=== PATIENT | female | born 1960 | race Caucasian/White ===

== ENCOUNTER 2016-09-16 07:31 | Day surgery (SDC) | payer OTHER ==
[2016-09-16] MEDS ORDERED: ONDANSETRON 4 MG/2 ML VIAL ONE (08:17)
[2016-09-16] MEDS ORDERED: LACTATED RINGERS 1,000 ML IV ONE (09:30)
[2016-09-16] MEDS ORDERED: fentaNYL 250 MCG/5 ML VIAL IVP ONE (09:54)
[2016-09-16] MEDS ORDERED: MIDAZOLAM 2 MG/2 ML VIAL IVP ONE (09:54)
== END 2016-09-16 07:32 | disposition home or self-care (01) ==
PROC: 0DJD8ZZ Inspection of Lower Intestinal Tract, Via Natural or Artificial Opening Endoscopic (ICD-10-PCS; principal; 2016-09-16 08:25)
DX: Z12.11 Encounter for screening for malignant neoplasm of colon (principal); K64.8 Other hemorrhoids; E11.9 Type 2 diabetes mellitus without complications; Z79.4 Long term (current) use of insulin; E03.9 Hypothyroidism, unspecified
CPT/HCPCS: 45378; J3010; J7120

== ENCOUNTER 2018-04-07 09:15 | Outpatient (CLI) | payer OTHER ==
[2018-04-07 14:05] LABS: ALBUMIN 4.1 g/dL (3.2-5.5); ALBUMIN/GLOBULIN RATIO 1.4 (1.0-2.2); BILIRUBIN,TOTAL 1.3 mg/dL (0.2-1.0); CALCIUM 9.2 mg/dL (8.5-10.3); CREATININE 0.5 mg/dL (0.4-1.0); TOTAL PROTEIN 7.1 g/dL (6.7-8.2)
[2018-04-07 15:09] LABS: HB2 TOTAL 15.8 g/dL; HEMOGLOBIN A1C 0.97 g/dL; HEMOGLOBIN A1C % 7.8 % (4.6-6.2)
== END 2018-04-07 09:16 | disposition home or self-care (01) ==
LOC: LAB.WCP 09:15
PROVIDERS: ATTEND Family Medicine
DX: E10.9 Type 1 diabetes mellitus without complications (principal)
CPT/HCPCS: 36415; 80053; 82043; 83036

== ENCOUNTER 2019-03-19 08:29 | Outpatient (CLI) | payer OTHER ==
--- NOTE | 2019-03-19 11:30 | Mammography Report ---
Reason: SCREENING MAMMO Procedure Date: 03/19/2019 Accession Number: [id number] / [id number] Procedure: RUFUS - Screening Mammo w/Collin CPT Code: FULL RESULT: EXAM: Screening Mammo w/Collin DATE: 03/19/2019 8:40 AM CLINICAL HISTORY: Screening encounter. History of early menses. TECHNIQUE: (B) - Bilateral CC and MLO views were obtained. Left laterally exaggerated CC views obtained. COMPARISON: 08/05/2016 through 12/21/2012. PARENCHYMAL PATTERN: (A) - The breast(s) demonstrate(s) scattered fibroglandular densities. FINDINGS: A typically benign right breast upper outer quadrant intramammary lymph node is redemonstrated. There are no suspicious masses, calcifications, or areas of distortion. IMPRESSION: Benign findings. BI-RADS category 2. RECOMMENDATION: (ANNUAL) - Recommend routine annual screening mammography. BI-RADS CATEGORY: (2) - Benign Findings. STANDARD QUALIFYING STATEMENTS: 1. This examination was not reviewed with the aid of Computer-Aided Detection (CAD). 2. A negative or benign imaging report should not preclude biopsy if clinically suspicious findings are present. 3. Dense breasts may obscure an underlying neoplasm. 4. This examination was reviewed with the aid of 3D breast imaging (tomosynthesis).
== END 2019-03-19 08:30 | disposition home or self-care (01) ==
LOC: DI 08:29
DX: Z12.31 Encounter for screening mammogram for malignant neoplasm of breast (principal)
CPT/HCPCS: 77063; 77067

== ENCOUNTER 2020-04-21 09:42 | Outpatient (CLI) | payer OTHER ==
[2020-04-21 12:21] LABS: CREATININE,URINE 46.3 mg/dL; MICROALBUM/CREATININE RATIO,UR 4.3 ug/mg (<30.0); MICROALBUMIN,URINE 0.2 mg/dL (0-300.0)
[2020-04-21 12:32] LABS: ALBUMIN/GLOBULIN RATIO 1.6 (1.0-2.2); ALKALINE PHOSPHATASE 52 IU/L (42-121); ALT ALANINE AMINOTRANSFERASE 29 IU/L (10-60); AST ASPARTATE AMINOTRANSFERASE 31 IU/L (10-42); BILIRUBIN,TOTAL 0.9 mg/dL (0.2-1.0); BUN - BLOOD UREA NITROGEN 24 mg/dL (6-20); CALCIUM 8.8 mg/dL (8.5-10.3); CARBON DIOXIDE - CO2 25 mmol/L (21-32); CHLORIDE 106 mmol/L (101-111); CHOL/HDL RATIO 4.1 (<4.4); CHOLESTEROL 159 mg/dL; CREATININE 0.6 mg/dL (0.4-1.0); GLUCOSE 238 mg/dL (70-100); HDL CHOLESTEROL 39 mg/dL; SODIUM 138 mmol/L (135-145); TOTAL PROTEIN 6.5 g/dL (6.7-8.2)
[2020-04-21 12:49] LABS: LDL CHOLESTEROL,CALCULATED 98 mg/dL; LDL/HDL RATIO 2.5 (<4.4); VLDL CHOLESTEROL 22 mg/dL
== END 2020-04-21 23:59 | disposition home or self-care (01) ==
LOC: LAB.WCP 09:42
PROVIDERS: ATTEND Family Medicine
DX: E10.9 Type 1 diabetes mellitus without complications (principal)
CPT/HCPCS: 36415; 80053; 80061; 82043; 82570; 83036; 83721; 84443

== ENCOUNTER 2020-07-12 14:55 | Outpatient (CLI) | payer OTHER ==
--- NOTE | 2020-07-13 16:44 | Mammography Report ---
BILATERAL DIGITAL SCREENING MAMMOGRAM 3D/2D: 07/12/2020 CLINICAL: Routine screening. Comparison is made to exams dated: 03/19/2019 mammogram and 08/05/2016 mammogram - [facility]. There are scattered fibroglandular elements in both breasts. No significant masses, calcifications, or other findings are seen in either breast. There has been no significant interval change. IMPRESSION: NEGATIVE There is no mammographic evidence of malignancy. A 1 year screening mammogram is recommended. This exam was interpreted at Station ID: [id number]. NOTE: For mammograms, a report in lay terms will be sent to the patient. Approximately 15% of breast malignancies will not be visualized mammographically. In the management of a palpable breast mass, a negative mammogram must not discourage biopsy of a clinically suspicious lesion. Electronically Signed By: Kobe somers/aravindrad:07/12/2020 16:14:32 ACR BI-RADS Category 1: Negative 3341F PARENCHYMAL PATTERN: (A) - The breast(s) demonstrate(s) scattered fibroglandular densities. BI-RADS CATEGORY: (1) - 1 RECOMMENDATION: (ANNUAL) - Recommend routine annual screening mammography. [id number] 1 year screening LATERALITY: (B)
== END 2020-07-12 14:56 | disposition home or self-care (01) ==
LOC: DI 14:55
DX: Z12.31 Encounter for screening mammogram for malignant neoplasm of breast (principal)
CPT/HCPCS: 77063; 77067

== ENCOUNTER 2021-05-25 08:00 | Outpatient (CLI) | payer OTHER ==
[2021-05-25 17:43] LABS: BASOPHILS # (AUTO) 0.1 10^3/uL (0.0-0.1); BASOPHILS % (AUTO) 0.6 %; EOSINOPHILS # (AUTO) 0.2 10^3/uL (0.0-0.7); HCT - HEMATOCRIT 43.3 % (37.0-47.0); HGB - HEMOGLOBIN 13.5 g/dL (12.0-16.0); LYMPHOCYTES # (AUTO) 2.5 10^3/uL (1.5-3.5); LYMPHOCYTES % (AUTO) 28.5 %; MEAN CORPUSCULAR HEMOGLOBIN 28.5 pg (27.0-31.0); MEAN CORPUSCULAR HGB CONC 31.2 g/dL (32.0-36.0); MEAN CORPUSCULAR VOLUME 91.5 fL (81.0-99.0); MEAN PLATELET VOLUME 11.2 fL (7.9-10.8); MONOCYTES # (AUTO) 0.5 10^3/uL (0.0-1.0); MONOCYTES % (AUTO) 5.9 %; NEUTROPHILS # (AUTO) 5.4 10^3/uL (1.5-6.6); NEUTROPHILS % (AUTO) 62.5 %; PLT - PLATELET COUNT 280 10^3/uL (130-450); RED BLOOD COUNT 4.73 10^6/uL (4.20-5.40); RED CELL DISTRIBUTION WIDTH 14.1 % (12.0-15.0); WHITE BLOOD COUNT 8.6 x10^3/uL (4.8-10.8)
[2021-05-25 18:14] LABS: CREATININE,URINE 70.3 mg/dL; MICROALBUM/CREATININE RATIO,UR 14.2 ug/mg (<30.0)
[2021-05-25 18:23] LABS: ALBUMIN 3.9 g/dL (3.2-5.5); ALBUMIN/GLOBULIN RATIO 1.4 (1.0-2.2); ALKALINE PHOSPHATASE 62 IU/L (42-121); ALT ALANINE AMINOTRANSFERASE 42 IU/L (10-60); AST ASPARTATE AMINOTRANSFERASE 40 IU/L (10-42); BILIRUBIN,TOTAL 1.2 mg/dL (0.2-1.0); BUN - BLOOD UREA NITROGEN 25 mg/dL (6-20); CALCIUM 8.9 mg/dL (8.5-10.3); CARBON DIOXIDE - CO2 27 mmol/L (21-32); CHLORIDE 105 mmol/L (101-111); CHOL/HDL RATIO 2.7 (<4.4); CHOLESTEROL 160 mg/dL; CREATININE 0.5 mg/dL (0.4-1.0); GFR - MDRD 125 (>89); GLUCOSE 151 mg/dL (70-100); HDL CHOLESTEROL 59 mg/dL; LDL CHOLESTEROL,CALCULATED 83 mg/dL; LDL/HDL RATIO 1.4 (<4.4); POTASSIUM 4.1 mmol/L (3.5-5.0); SODIUM 139 mmol/L (135-145); TOTAL PROTEIN 6.6 g/dL (6.7-8.2); TRIGLYCERIDES 92 mg/dL; VLDL CHOLESTEROL 18 mg/dL
[2021-05-25 18:36] LABS: THYROID STIMULATING HORMONE 0.53 uIU/mL (0.34-5.60)
[2021-05-25 21:26] LABS: ESTIMATED AVERAGE GLUCOSE 148 mg/dL (70-100); HEMOGLOBIN A1c% 6.8 % (4.27-6.07)
== END 2021-05-25 23:59 | disposition home or self-care (01) ==
LOC: LAB.WCP 08:00
PROVIDERS: ATTEND Family Medicine
DX: E10.9 Type 1 diabetes mellitus without complications (principal)
CPT/HCPCS: 36415; 80053; 80061; 82043; 82570; 83036; 83721; 84443; 85025

== ENCOUNTER 2021-08-08 10:16 | Outpatient (CLI) | payer OTHER ==
--- NOTE | 2021-08-09 13:38 | Mammography Report ---
BILATERAL DIGITAL SCREENING MAMMOGRAM 3D/2D: 08/08/2021 CLINICAL: Routine screening. Comparison is made to exams dated: 07/12/2020 mammogram, 03/19/2019 mammogram, 08/05/2016 mammogram, 06/20/2015 mammogram, 05/18/2014 mammogram, and 12/21/2012 mammogram - [facility]. T here are scattered fibroglandular elements in both breasts. No significant masses, calcifications, or other findings are seen in either breast. There has been no significant interval change. IMPRESSION: NEGATIVE There is no mammographic evidence of malignancy. A 1 year screening mammogram is recommended. This exam was interpreted at Station ID: [id number]. NOTE: For mammograms, a report in lay terms will be sent to the patient. Approximately 15% of breast malignancies will not be visualized mammographically. In the management of a palpable breast mass, a negative mammogram must not discourage biopsy of a clinically suspicious lesion. Electronically Signed By: Jase Esteban M.D., jr/mikey:08/08/2021 15:42:26 ACR BI-RADS Category 1: Negative 3341F PARENCHYMAL PATTERN: (A) - The breast(s) demonstrate(s) scattered fibroglandular densities. BI-RADS CATEGORY: (1) - 1 RECOMMENDATION: (ANNUAL) - Recommend routine annual screening mammography. [id number] 1 year screening LATERALITY: (B)
== END 2021-08-08 10:17 | disposition home or self-care (01) ==
LOC: DI.N 10:16 → DI 10:17
DX: Z12.31 Encounter for screening mammogram for malignant neoplasm of breast (principal)

== ENCOUNTER 2021-08-29 15:15 | Outpatient (CLI) | payer OTHER ==
[2021-08-29 18:49] LABS: BILIRUBIN,URINE NEGATIVE (NEGATIVE); GLUCOSE, URINE (UA) NEGATIVE (NEGATIVE); KETONES,URINE (UA) NEGATIVE (NEGATIVE); LEUKOCYTE ESTERASE, URINE NEGATIVE (NEGATIVE); NITRITE,URINE NEGATIVE (NEGATIVE); OCCULT BLOOD,URINE LARGE (NEGATIVE); PH,URINE 5.5 PH (5.0-7.5); PROTEIN,URINE 100 mg/dL (NEGATIVE); UROBILINOGEN,URINE 0.2 (NORMAL) E.U./dL (NORMAL)
[2021-08-29 18:52] LABS: CLARITY,URINE HAZY (CLEAR)
[2021-08-29 19:16] LABS: BACTERIA,URINE Rare /HPF (None Seen); RBC,URINE TNTC /HPF (0-5); SQUAMOUS EPITHELIAL CELL,UR RARE Squamous (<= Few); WBC,URINE 0-3 /HPF (0-5)
== END 2021-08-29 23:59 | disposition home or self-care (01) ==
LOC: LAB.WCP 15:15
PROVIDERS: ATTEND Family Medicine
DX: R10.2 Pelvic and perineal pain (principal)
CPT/HCPCS: 81001; 87086

== ENCOUNTER 2021-09-06 11:16 | Outpatient (CLI) | payer OTHER ==
[2021-09-06 12:14] LABS: CREATININE 0.6 mg/dL (0.4-1.0); POTASSIUM 3.7 mmol/L (3.5-5.0)
[2021-09-06] MEDS ORDERED: iohexoL-300 100 ML VIAL ONE (12:41)
[2021-09-06] MEDS ORDERED: iohexoL-300 100 ML VIAL IVP ONE (12:56)
--- NOTE | 2021-09-06 13:53 | CT Report ---
PROCEDURE: ABDOMEN/PELVIS W/WO INDICATIONS: HEMATURIA CONTRAST: IV CONTRAST: Isovue 300 ml: 140 PO CONTRAST: *NO PO CONTRAST TECHNIQUE: Noncontrast 5 mm thick sections acquired from the diaphragms to the symphysis. 5 mm coronal and sagi ttal reformats were then performed. After the administration of oral and intravenous contrast, 5 mm thick sections acquired from the diaphragms to the symphysis. 5 mm thick coronal and sagittal reform ats were acquired. For radiation dose reduction, the following was used: automated exposure control , adjustment of mA and/or kV according to patient size. COMPARISON: None. FINDINGS: Image quality: Excellent. Lung bases: Lung bases are clear. Heart size is normal. Urinary system: Both kidneys are normal in size, without hydronephrosis. There is a right renal pelv ic calculus measuring 9 mm. There are 2 adjacent calculi within the inferior pole left kidney measuri ng roughly 4-5 mm. There are 3 adjacent calculi within the left renal pelvis measuring 9 mm, 13 mm, a nd 7 mm. No perinephric fat stranding. There is normal bilateral renal enhancement. Renal calyces a ppear normal in morphology when filled with contrast. Opacified portions of both ureters demonstrate normal caliber. Bladder wall thickness is normal. No calcified bladder stones. Other solid organs: Liver and spleen are normal in size and enhancement. Gallbladder is mildly diste nded Biliary system is non dilated. Pancreas enhances normally. No adrenal nodules. Peritoneum and bowel: Bowel loops demonstrate normal wall thickness and caliber. No free fluid or a ir. Nodes and vessels: No retroperitoneal or mesenteric adenopathy by size criteria. Aorta and inferior vena cava are normal in size. Abdominal wall: A small fat-containing umbilical hernia is present. Pelvis: No pathologic free pelvic fluid. No inguinal hernias or adenopathy. Bones: No suspicious bony lesions. Moderate chronic T12 compression fracture. No acute vertebral jareth dy compression fractures. IMPRESSION: 1. Bilateral nonobstructing renal calculi. 2. No evidence of renal neoplasm. Reviewed by: Zak Grant MD on 09/06/2021 1:52 PM PST Approved by: Zak Grant MD on 09/06/2021 1:52 PM PST Station ID: [id number]
== END 2021-09-06 11:17 | disposition home or self-care (01) ==
LOC: LAB 11:16 → DI 11:17
PROVIDERS: ATTEND Nurse Practitioner
DX: N20.0 Calculus of kidney (principal); R31.9 Hematuria, unspecified; R10.2 Pelvic and perineal pain
CPT/HCPCS: 36415; 74178; 80048; Q9967

== ENCOUNTER 2021-09-14 16:49 | Outpatient (CLI) | payer OTHER ==
--- NOTE | 2021-09-14 21:06 | Ultrasound Report ---
PROCEDURE: Pelvic w/Transvaginal INDICATIONS: POSTMENOPAUSAL BLEEDING TECHNIQUE: Real-time scanning was performed of the pelvic organs, with image documentation. Additional endovagi nal scanning was necessary due to incomplete visualization of the adnexal and endometrial structures by transabdominal scanning. COMPARISON: CT of abdomen and pelvis dated 09/06/2021 and ultrasound of pelvis dated 07/28/2007. FINDINGS: No pathologic free abdominal or pelvic fluid. Uterus: Retroverted uterus is normal in size at 6.6 x 3.3 x 4.3 cm. Heterogeneous myometrial echotex ture is seen. Multiple calcified fibroids are seen scattered throughout myometrium with the largest i ntramural fibroid measures 1.6 x 0.9 x 0.9 cm is seen in left posterior myometrium. The endometrium m easures 3 mm in combined thickness. No gross endometrial mass or fluid. Ovaries: Bilateral ovaries are not visualized on this study. No gross adnexal mass is seen. IMPRESSION: 1. Heterogeneous myometrial echotexture with multiple calcified uterine fibroids as above. No gross e ndometrial mass or fluid. 2. Bilateral ovaries are not visualized on this study. No gross adnexal mass is seen. No pelvic free fluid. Reviewed by: Grant Georges MD on 09/14/2021 9:05 PM PST Approved by: Grant Georges MD on 09/14/2021 9:05 PM PST Station ID: [id number]
== END 2021-09-14 16:50 | disposition home or self-care (01) ==
LOC: DI 16:49
PROVIDERS: ATTEND Family Medicine
DX: D25.1 Intramural leiomyoma of uterus (principal)

== ENCOUNTER 2022-07-15 11:13 | Outpatient (CLI) | payer OTHER | END 2022-07-15 11:14 | disposition critical access hospital (66) | LOC: EMS 11:13 | DX: J10.1 Influenza due to other identified influenza virus with other respiratory manifestations (principal) | CPT/HCPCS: A0425; A0429 ==

== ENCOUNTER 2022-07-15 11:32 | Inpatient (IN) | payer OTHER ==
[2022-07-15] MEDS ORDERED: AZITHROMYCIN INJ 500 MG in SODIUM CHLORIDE 0.9% 250 ML IV STA (12:35)
[2022-07-15] MEDS ORDERED: cefTRIAXone 2 GM in SODIUM CHLORIDE 0.9% MINIBAG 100 ML IV STA (12:35)
[2022-07-15 12:49] LABS: BASOPHILS % (AUTO) 0.2 %; HCT - HEMATOCRIT 42.9 % (37.0-47.0); LYMPHOCYTES % (AUTO) 6.2 %; MEAN CORPUSCULAR HEMOGLOBIN 27.8 pg (27.0-31.0); MEAN CORPUSCULAR HGB CONC 32.6 g/dL (32.0-36.0); MEAN CORPUSCULAR VOLUME 85.1 fL (81.0-99.0); MEAN PLATELET VOLUME 10.7 fL (7.9-10.8); MONOCYTES % (AUTO) 1.4 %; NEUTROPHILS % (AUTO) 90.8 %; PLT - PLATELET COUNT 344 10^3/uL (130-450); RED BLOOD COUNT 5.04 10^6/uL (4.20-5.40); RED CELL DISTRIBUTION WIDTH 13.6 % (12.0-15.0); WHITE BLOOD COUNT 13.1 x10^3/uL (4.8-10.8)
[2022-07-15 12:52] LABS: ABNORMAL LYMPHS % (MANUAL) 0 %
--- NOTE | 2022-07-15 12:59 | XRAY Report ---
PROCEDURE: Chest 1 View X-Ray INDICATIONS: chest pain TECHNIQUE: One view of the chest was acquired. COMPARISON: None. FINDINGS: Surgical changes and devices: None. Lungs and pleura: Moderate diffuse lung disease. Low lung volumes. Mediastinum: Mediastinal contours appear normal. Heart size is normal. Bones and chest wall: No suspicious bony lesions. Overlying soft tissues appear unremarkable. IMPRESSION: Moderate diffuse infectious or inflammatory lung disease. Consider future imaging surveillance to ass ess for resolution. Reviewed by: Lee Montejo MD on 07/15/2022 12:57 PM PST Approved by: Lee Montejo MD on 07/15/2022 12:57 PM PST Station ID: [id number]
[2022-07-15 13:03] LABS: ALBUMIN/GLOBULIN RATIO 0.7 (1.0-2.2); BILIRUBIN,TOTAL 2.8 mg/dL (0.2-1.0); CALCIUM 8.3 mg/dL (8.5-10.3); CREATININE 0.7 mg/dL (0.4-1.0); POTASSIUM 2.9 mmol/L (3.5-5.0); TOTAL PROTEIN 7.2 g/dL (6.7-8.2)
[2022-07-15 13:12] LABS: B. PARAPERTUSSIS- RESP PCR PAN NOT DETECTED; B. PERTUSSIS- RESP PCR PANEL NOT DETECTED; C. PNEUMONIAE- RESP PCR PANEL NOT DETECTED; CORONAVIRUS 229E-RESP PCR NOT DETECTED; CORONAVIRUS HKU1-RESP PCR NOT DETECTED; CORONAVIRUS NL63-RESP PCR NOT DETECTED; CORONAVIRUS OC43-RESP PCR NOT DETECTED; HUMAN METAPNEUMOVIRUS NOT DETECTED; INFLUENZA A H3- RESP PCR PANEL DETECTED; INFLUENZA B - RESP PCR PANEL NOT DETECTED; M. PNEUMONIAE- RESP PCR PANEL NOT DETECTED; PARAINFLUENZA VIRUS 1 NOT DETECTED; PARAINFLUENZA VIRUS 2 NOT DETECTED; PARAINFLUENZA VIRUS 3 NOT DETECTED; PARAINFLUENZA VIRUS 4 NOT DETECTED; RHINOVIRUS/ENTEROVIRUS NOT DETECTED; RSV- RESP PCR PANEL NOT DETECTED; SARS-CoV-2 -RESP PCR PANEL NOT DETECTED
[2022-07-15 13:12] LABS: BAND NEUTROPHILS % (MANUAL) 27 %; DIFFERENTIAL COMMENT MANUAL DIFFERENTIAL; LYMPHOCYTES # (MANUAL) 1.4 10^3/uL (1.5-3.5); LYMPHOCYTES % (MANUAL) 9 %; MONOCYTES # (MANUAL) 0.1 10^3/uL (0.0-1.0); NEUTROPHILS # (MANUAL) 11.5 10^3/uL (1.5-6.6); PLATELET ESTIMATE, MANUAL NORMAL (130-450,000) (NORMAL); PLATELET MORPHOLOGY NORMAL APPEARANCE (NORMAL); RBC MORPHOLOGY (MULTIPLE) NORMAL APPEARANCE (NORMAL); REACTIVE LYMPHS % (MANUAL) 2 %; WBC MORPHOLOGY (MULTIPLE) 4+ TOXIC GRANULATION (NORMAL)
[2022-07-15] MEDS ORDERED: POTASSIUM CHLORIDE 20 MEQ TABLET PO STA (13:19)
--- NOTE | 2022-07-15 13:23 | ED Physician Documentation ---
History of Present Illness - Stated complaint Stated Complaint: SOA - Chief complaint Chief Complaint: Resp - History obtained from History obtained from: Patient - Additonal information Additional information: The patient comes to the emergency department chief complaint of increasing dyspnea and productive cough over the last several days. She states that she recently took a trip to [facility] with some friends and shortly after arriving home, began to feel ill. She states she has had some chills but no measured fevers. She was seen in walk-in clinic this morning and diagnosed with influenz a A, but found to have an oxygen saturation of 85% on room air and so EMS was called and transported the patient here. The patient denies any chest pain. No nausea or vomiting. She states that she has no underlying lung disease and is not a smoker. No heart disease that she knows of. Patient is otherwise healthy. No other complaints at this time. Review of Systems Ten Systems: 10 systems reviewed and negative Constitutional: reports: Reviewed and negative Eyes: reports: Reviewed and negative Ears: reports: Reviewed and negative Nose: reports: Reviewed and negative Throat: reports: Reviewed and negative Cardiac: reports: Reviewed and negative Respiratory: reports: Dyspnea, Cough GI: reports: Reviewed and negative : reports: Reviewed and negative Skin: reports: Reviewed and negative Musculoskeletal: reports: Reviewed and negative Neurologic: reports: Reviewed and negative Psychiatric: reports: Reviewed and negative Endocrine: reports: Reviewed and negative Immunocompromised: reports: Reviewed and negative PD PAST MEDICAL HISTORY - Past Medical History Endocrine/Autoimmune: Type 1 diabetes - Past Surgical History 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 - Present Medications Home Medications: Ambulatory Orders Medication Instructions Recorded Confirmed Aspirin [[place] Aspirin] 81 mg PO DAILY 05/06/15 07/16/22 Insulin Glargine,Hum.rec.anlog 20 units SQ DAILY 05/06/15 07/16/22 [Lantus] Insulin Lispro [Humalog] 5 - 10 units SQ QDDINNER 05/06/15 07/16/22 Levothyroxine [Synthroid] 100 mcg PO QDAC 05/06/15 07/16/22 Ergocalciferol [Vitamin D2] 50,000 units PO DAILY 07/15/22 07/16/22 Potassium Citrate [Potassium 10 meq PO TID 07/15/22 07/16/22 Citrate ER] - Allergies Allergies/Adverse Reactions: Allergies Allergy/AdvReac Type Severity Reaction Status Date / Time No Known Drug Allergies Allergy Verified 05/06/15 10:24 - Social History Does the pt smoke?: No Smoking Status: Never smoker Does the pt drink ETOH?: No Does the pt have substance abuse?: No - Immunizations Immunizations are current?: No Immunizations: TDAP >10years/unknown - POLST Patient has POLST: No PD ED PE NORMAL - Vitals Vital signs reviewed: Yes - General General: Alert and oriented X 3, Well developed/nourished, Other (Mild respiratory distress) - HEENT HEENT: Atraumatic, PERRL, EOMI, Moist mucous membranes - Neck Neck: Supple, no meningeal sign - Cardiac Cardiac: RRR, No murmur, Strong equal pulses - Respiratory Respiratory: Other (Bilateral basilar crackles, no wheezing. 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, Normal speech - Psych Psych: Normal mood, Normal affect Results - Vitals Vitals: Oxygen O2 Source Nasal cannula Oxygen Flow Rate 2 - Labs Labs: Laboratory Tests 07/15/22 07/15/22 07/15/22 12:14 12:43 12:43 WBC 13.1 H RBC 5.04 Hgb 14.0 Hct 42.9 MCV 85.1 MCH 27.8 MCHC 32.6 RDW 13.6 Plt Count 344 MPV 10.7 Neut # (Auto) Not Reportable Lymph # (Auto) Not Reportable [place] # (Auto) Not Reportable Eos # (Auto) Not Reportable Baso # (Auto) Not Reportable Absolute Nucleated RBC Not Reportable Total Counted 100 Band Neuts % (Manual) 27 H Reactive Lymphs % (Man) 2 Abnorm Lymph % (Manual) 0 Nucleated RBC % Not Reportable Neutrophils # (Manual) 11.5 H Lymphocytes # (Manual) 1.4 L Monocytes # (Manual) 0.1 Eosinophils # (Manual) 0.0 Basophils # (Manual) 0.0 Differential Comment MANUAL DIFFERENTIAL WBC Morphology 4+ TOXIC GRANULATION Platelet Estimate NORMAL (130-450,000) Platelet Morphology NORMAL APPEARANCE RBC Morph Micro Appear NORMAL APPEARANCE Sodium 133 L Potassium 2.9 L Chloride 91 L Carbon Dioxide 23 Anion Gap 19.0 H BUN 30 H Creatinine 0.7 Estimated GFR (MDRD) 85 L Glucose 158 H Calcium 8.3 L Total Bilirubin 2.8 H AST 39 ALT 20 Alkaline Phosphatase 57 Total Protein 7.2 Albumin 3.0 L Globulin 4.2 Albumin/Globulin Ratio 0.7 L Lipase 23 Nasal Adenovirus (PCR) NOT DETECTED Nasal B. parapertussis DNA (PCR) NOT DETECTED Nasal Coronavir 229E PCR NOT DETECTED Nasal Coronavir HKU1 PCR NOT DETECTED Nasal Coronavir NL63 PCR NOT DETECTED Nasal Coronavir OC43 PCR NOT DETECTED Nasal Enterovir/Rhinovir PCR NOT DETECTED Nasal Influenza A H3 PCR DETECTED A Nasal Influenza B PCR NOT DETECTED Nasal Parainfluen 1 PCR NOT DETECTED Nasal Parainfluen 2 PCR NOT DETECTED Nasal Parainfluen 3 PCR NOT DETECTED Nasal Parainfluen 4 PCR NOT DETECTED Nasal RSV (PCR) NOT DETECTED Nasal B.pertussis DNA PCR NOT DETECTED Nasal C.pneumoniae (PCR) NOT DETECTED Jc Human Metapneumo PCR NOT DETECTED Nasal M.pneumoniae (PCR) NOT DETECTED Nasal SARS-CoV-2 (PCR) NOT DETECTED - Rads (name of study) CXR Radiology: Final report received, EMP read indepedently, See rad report PD MEDICAL DECISION MAKING - ED course Complexity details: reviewed results, re-evaluated patient, considered differential, d/w patient ED course: The patient was found to have influenza A on respiratory PCR, and x-ray showed diffuse moderate infiltrates bilaterally. Mild leukocytosis noted. She was placed on supplemental oxygen at 2 L per nasal cannula which brought her oxygen saturation up from 89 to 90% on room air here to the mid 90s. She was started on abx in the ED. The pt was admitted to the hospital under Dr. Ellis. Departure - Departure Disposition: 66 [facility] DC/Xfer Clinical Impression: Influenza A, Hypoxia Pneumonia Qualifiers: Pneumonia type: due to unspecified organism Laterality: bilateral Lung locat ion: unspecified part of lung Qualified Code(s): J18.9 - Pneumonia, unspecified organism Condition: Serious Discharge Date/Time: 07/15/22 15:13
[2022-07-15] MEDS ORDERED: ONDANSETRON 4 MG/2 ML VIAL IVP PRN (14:18)
[2022-07-15] MEDS ORDERED: ONDANSETRON ODT 4 MG TABLET TL PRN (14:18)
[2022-07-15] MEDS ORDERED: IBUPROFEN 400 MG TABLET PO PRN (14:18)
[2022-07-15] MEDS ORDERED: oxyCODONE 5 MG TABLET PO PRN (14:18)
[2022-07-15] MEDS ORDERED: SODIUM CHLORIDE FLUSH 0.9% 10 ML SYRINGE IVP PRN (14:18)
[2022-07-15] MEDS ORDERED: SODIUM CHLORIDE 0.9% 1,000 ML IV SCH (15:00)
--- NOTE | 2022-07-15 15:59 | HISTORY & PHYSICAL EXAMINATION ---
Chief Complaint - Chief Complaint Chief Complaint: cough, SOB History of Present Illness - Admitted From Admitted From:: Emergency Department - History Obtained From Records Reviewed: yes History obtained from: Patient and [facility] - History of Present Illness HPI Comment/Other: Bridgett presented to the emergency department today with increasing dyspnea, weakness, fatigue, diarrhea and productive cough. She was transported there by EMS when she was seen at the walk in clinic and had a oxygen saturation of 85% on room air. She started to feel sick last Friday while she was on vacation in [place] with some friends who had young children who were also sick. She has not measured a fever at home but she does complain of chills, fatigue, we akness. She denies chest pain, syncope, nausea, vomiting, abdominal pain, vision changes, headaches. She has a medical history significant for hypothyroidism, type 1 DM, kidney stones. She lives in her own home with her of 37 years and an adult daughter. She denies underlying lung or heart disease and is not a smoker. In the ED her HR went from low at 50bpm at 11:41 to 101bpm at 13:53. Blo od pressure is steady in the 140/60s. Her oxygen saturation was 88 on room air when she presented and is now at 95 on 1L of oxygen via nasal cannula. Her WBC count is elevated, she has 27% banded neutrophils and 11.5 neutrophilia. Her BUN is elevated, her GFR today is 85, previously this year it has been >100. She reports that her average A1C is 5.5. Her viral panel was positive for influenza A. Chest Xray showed a moderate diffuse infectious or inflammatory lung disease with low lung volumes. 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 3 Births were via section) : reports: Kidney stones (She was scheduled to see on July 25 for kidney stones, she has never had them before.) HEENT: reports: Chronic vision loss, Chronic hearing loss (She is hard of hearing, she does not wear hearing aids. ) Psych: reports: None, Depression, Anxiety Musculoskeletal: reports: None Derm: reports: None - Past Surgical History General: reports: Colonoscopy /DRAGLINE MECHANIC: reports: section (3) - Family & Social History Family History: Mother: , Cancer, COPD/Emphysema, Father: , Cancer, COPD/Emphysema, Sister: Alive and Well (She has 2 sisters, 2 brothers. One sister has parkinsons, her other siblings are alive and well without chronic health conditions as far as she knows.), Parkinson's Disease, Brother: Alive and Well Living arrangement: At home Living Situation: With spouse/s.o. Social History Notes: Bridgett is a very active woman who lives in her own home with her and one of her daughters. 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 Her is retired. She grew up in [facility] and has 3 children. She does not smoke or drink. - Substance History Use: Uses substance without health or social issues: NONE - POLST Patient has POLST: No Meds/Allgy - Home Medications Home Medications: Ambulatory Orders Medication Instructions Recorded Confirmed Aspirin [[place] Aspirin] 81 mg PO DAILY 05/06/15 09/16/16 Insulin Glargine,Hum.rec.anlog 20 units SQ DAILY 05/06/15 09/16/16 [Lantus] Insulin Lispro [Humalog] 5 - 10 units SQ QDDINNER 05/06/15 05/06/15 Levothyroxine [Synthroid] 100 mcg PO QDAC 05/06/15 09/16/16 Ergocalciferol [Vitamin D2] 50,000 units PO DAILY 07/15/22 Potassium Citrate [Potassium 10 meq PO TID 07/15/22 Citrate ER] - Allergies Allergies/Adverse Reactions: Allergies Allergy/AdvReac Type Severity Reaction Status Date / Time No Known Drug Allergies Allergy Verified 05/06/15 10:24 Review of Systems - Constitutional Constitutional: reports: Fatigue, Chills, Malaise, Weakness, Poor appetite. denies: Fever, Night sweats - Eyes Eyes: denies: Spots in vision, Corrective lenses - Ears, Nose & Throat Ears, Nose & Throat: reports: Nasal congestion. denies: Hearing aids, Vertigo, Sore throat, Hoarseness - Cardiovascular Cariovascular: reports: Edema (pedal edema she has had for the last 3 months). denies: Chest pain, Lightheadedness, Syncope - Respiratory Respiratory: reports: Cough, Sputum production, Wheezing, SOB at rest. denies: Hemoptysis - Gastrointestinal Gastrointestinal: reports: Diarrhea, Change in bowel habits (She normally has regularly formed bowel movements without constipation), Poor appetite. denies: Abdominal pain, Abdominal distention, Constipation, Black stools, Bloody stools, Nausea, Vomiting - Genitourinary Genitourinary: reports: Dysuria, Frequency, Flank pain - Musculoskeletal Musculoskeletal: reports: Muscle weakness - Integumentary Integumentary: denies: Rash - Neurological Neurological: reports: General weakness. 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 She is usually not limited in any capacity for what she likes to do. She can do all the chores in her house without being short of breath and can walk around the grocery store without needing a break. Exam - Vital Signs Vital Signs: Vital Signs x48h Temp Pulse Resp BP Pulse Ox O2 Flow Rate 07/15/22 14:53 36.2 C L 100 23 140/57 H 95 1 07/15/22 13:53 101 H 22 136/68 H 92 1 07/15/22 11:41 36.5 C 50 L 22 148/76 H 88 L - Physical Exam General Appearance: positive: Mild distress Eyes Bilateral: positive: PERRL, EOMI, No scleral icterus ENT: positive: No signs of dehydration Neck: positive: No JVD. negative: Stiff neck Respiratory: negative: Breath sounds nml (Breath sounds were distant.) Cardiovascular: positive: Regular rate & rhythm. negative: No murmur, No gallop Peripheral Pulses: positive: 2+ Abdomen: positive: Non-tender, No organomegaly, Nml bowel sounds, No distention Skin: positive: Warm, Dry, Pallor Extremities: positive: Full ROM, Pedal edema Neurologic/Psychiatric: positive: Oriented x3, CN's nml (2-12), Mood/affect nml Sepsis Event Note (H) - Evaluation Current Stage of Sepsis: Sepsis Possible source of Sepsis: positive: Pulmonary - Sepsis Criteria Sepsis Criteria: Recorded Heart Rate greater than 90 bpm, Recorded Respiratory Rate greater than 20, Respiratory: Increasing oxygen requirements, WBC count greater than 10% bands, WBC count greater than 12,000 or less than 4000 Conclusion/Plan - Problem List (1) Sepsis Conclusion/Plan: Bridgett meets the SIRS criteria for sepsis with a HR of 100, respiratory rate of 23, lactic acid 3.4, WBC count of 13.1 and a suspected source from her respiratory infection. She is very sick looking on exam, with a loud productive cough and clearly uncomfortable even sitting in bed. Plan: Repeat lactic acid in 3-4 hours Start IV fluids with normal saline Continue Ceftriaxone and Azithromycin Qualifiers: Sepsis type: sepsis due to unspecified organism Sepsis acute organ dysfunction status: unspecified Qualified Code(s): A41.9 - Sepsis, unspecified organism (2) Pneumonia Conclusion/Plan: CXR performed on 07/15 showed moderate diffuse infectious or inflammatory lung disease. In addition she is tachycardic, short of breath, has an O2 sat of 88% on room air, generalized weakness and fatigue, productive cough and distant breath sounds. She likely has a viral pneumonia from her positive influenza however her neutrophil bands at 27% and leukocytosis with a left shift indicate she may have a subsequent bacterial pneumonia. The ED started her on empiric antibiotics without blood cultures so these will not be obtained. She has had 3- 4 days of diarrhea which make legionella or mycoplasma more likley pathogens. Plan: Sputum culture Continue oxygen prn Continue Ceftriaxone 1g IV qd x 5 days continue Azithromycin 500mg IV qd x 3 doses Qualifiers: Pneumonia type: due to unspecified organism Laterality: bilateral Lung location: unspecified part of lung Qualified Code(s): J18.9 - Pneumonia, unspecified organism (3) Influenza A Conclusion/Plan: Her symptoms of dyspnea, productive cough, nasal congestion, malaise, fatigue, chills are consistent with URI, her viral panel was positive for Influenza A, ho wever she started experiencing symptoms on 07/10 so I do not recommend Tamiflu. I also considered CHF, pulmonary congestion, pneumonia, bronchitis. Will treat her underlying symptoms. We will support her with fluids, nsaids as needed for fever or pain. Plan: Start NS IV (4) Hypoxia Conclusion/Plan: She presented in the ED with O2 at 88% on room air, now she is 95% with 1L of O2 via nasal cannula. She denies any history of lung disease, she said she has n ever been sick like this before. She never experiences shortness of breath in her daily activities and is not a smoker. Her history and presentation are consistent with respiratory distress due to viral illness. I also considered COPD, CHF, lung fibrosis however CXR is not consistent with these. Plan: Continue oxygen prn Start albuterol q4hr prn (5) Type 1 diabetes mellitus Conclusion/Plan: She has had diabetes for over 30 years that she manages with insulin at home. She says her average A1C is 5.5% and she has no end stage complications. Plan Evaluate A1C, monitor glucose daily Start lispro 1-9u SQ QID and Semglee 10u SQ QPM Qualifiers: Diabetes mellitus complication status: without complication Qualified Code(s): E10.9 - Type 1 diabetes mellitus without complications (6) Hypothyroid Conclusion/Plan: She has a hx of hypothyroidism that is well controlled with Synthroid. Plan: continue synthroid. Qualifiers: Hypothyroidism type: acquired Qualified Code(s): E03.9 - Hypothyroidism, unspecified (7) Hypokalemia Conclusion/Plan: Potassium is at 2.9, her hypokalemia is likely due to a combination of insulin use, decreased food intake while she's been sick and wirh diarrhea for the past week. Plan: supplement with oral potassium Monitor BMP daily (8) Diarrhea Conclusion/Plan: She has been having multiple episodes of diarrhea for the last week since she has been sick. Start: Imodium Check C.Diff Qualifiers: Diarrhea type: presumed infectious Qualified Code(s): R19.7 - Diarrhea, unspecified - Lab Results Fish Bones: 07/15/22 12:43 07/15/22 12:43 Core Measures - DVT/VTE - Prophylaxis VTE/DVT Prophylaxis med ordered at admit?: Yes
[2022-07-15] MEDS: SODIUM CHLORIDE FLUSH 0.9% 10 ML SYRINGE IVP SCH (16:17)
[2022-07-15] MEDS ORDERED: SODIUM CHLORIDE 0.9% 1,000 ML IV ONE (16:21)
[2022-07-15] MEDS: INSULIN LISPRO 300 UNIT/3 ML PEN SUBQ SCH ×2 (17:06→20:49)
[2022-07-15] MEDS: POTASSIUM CHLOR 10 MEQ/100 ML 10 MEQ/100 ML BAG IV SCH ×4 (17:20→20:33)
[2022-07-15] MEDS ORDERED: DIPHENOX/ATROPINE 2.5/0.025 MG TABLET PO PRN (17:24)
[2022-07-15] MEDS: INSULIN GLARGINE-YFGN 300 UNIT/3 ML PEN SUBQ SCH (20:48)
[2022-07-16] MEDS: SODIUM CHLORIDE FLUSH 0.9% 10 ML SYRINGE IVP SCH ×3 (00:25→20:50)
[2022-07-16] MEDS: ACETAMINOPHEN 325 MG TABLET PO PRN (00:46)
[2022-07-16] MEDS: cefTRIAXone 1 GM in SODIUM CHLORIDE 0.9% MINIBAG 100 ML IV SCH (09:15)
[2022-07-16] MEDS: AZITHROMYCIN INJ 500 MG in SODIUM CHLORIDE 0.9% 250 ML IV SCH (09:49)
[2022-07-16 10:16] LABS: ESTIMATED AVERAGE GLUCOSE 148 mg/dL (70-100); HEMOGLOBIN A1c% 6.8 % (4.27-6.07)
--- NOTE | 2022-07-16 11:28 | PROVIDER PROGRESS NOTE ---
Subjective - Prog Note Date Prog Note Date: 07/16/22 Prog Note Time: 11:26 - Subjective Pt reports feeling: Improved Subjective: But she is improved only slightly. She was able to get out of the bed to sit on the bedside commode. Wiped her out from shortness of breath and fatigue. Still having diarrhea. Still short of breath, still coughing, still weak but slightly better than yesterday. I had failed to ask registry about the flu vaccine and she had not gotten it. She is never gotten the flu vaccine before. She is rethinking that philosophy right now. Current Medications - Current Medications Current Medications: Active Medications Acetaminophen (Acetaminophen 325 Mg Tablet) 650 mg PO Q4HR PRN PRN Reason: Pain 1 to 4, or Fever Last Admin: 07/16/22 00:46 Dose: 650 mg Diphenoxylate HCl/Atropine (Diphenox/Atropine 2.5/0.025 Mg Tablet) 1 tab PO QID PRN PRN Reason: Diarrhea Enoxaparin Sodium (Enoxaparin 40 Mg/0.4 Ml Syringe) 40 mg SUBQ DAILY [facility] Ceftriaxone Sodium 1 gm/ (Sodium Chloride) 100 mls @ 200 mls/hr IV DAILY [facility] Stop: 07/21/22 08:59 Last Admin: 07/16/22 09:15 Dose: 200 mls/hr Azithromycin 500 mg/ Sodium (Chloride) 250 mls @ 250 mls/hr IV DAILY [facility] Stop: 07/17/22 09:59 Last Admin: 07/16/22 09:49 Dose: 250 mls/hr Ibuprofen (Ibuprofen 400 Mg Tablet) 400 mg PO Q4HR PRN PRN Reason: Pain 1 to 4 Insulin Glargine-yfgn (Insulin Glargine-Yfgn 300 Unit/3 Ml Pen) 10 unit SUBQ QPM [facility] Last Admin: 07/15/22 20:48 Dose: 10 unit Insulin Human Lispro (Insulin Lispro 300 Unit/3 Ml Pen) 1 - 9 unit SUBQ 0800,1200,1700,2100 [facility]; Protocol Last Admin: 07/15/22 20:49 Dose: 1 unit Ondansetron HCl (Ondansetron Odt 4 Mg Tablet) 4 mg TL Q6HR PRN PRN Reason: Nausea / Vomiting Ondansetron HCl (Ondansetron 4 Mg/2 Ml Vial) 4 mg IVP Q6HR PRN PRN Reason: Nausea / Vomiting Oxycodone HCl (Oxycodone 5 Mg Tablet) 5 mg PO Q4HR PRN PRN Reason: Pain 5 to 7 Sodium Chloride (Sodium Chloride Flush 0.9% 10 Ml Syringe) 10 ml IVP PRN PRN PRN Reason: NEEDED PER PROVIDER ORDERS Sodium Chloride (Sodium Chloride Flush 0.9% 10 Ml Syringe) 10 ml IVP 0100,0900,1700 MELI Last Admin: 07/16/22 00:25 Dose: Not Given Aspirin [[place] Aspirin] 81 mg PO DAILY 05/06/15 Insulin Glargine,Hum.rec.anlog [Lantus] 20 units SQ DAILY 05/06/15 Insulin Lispro [Humalog] 5 - 10 units SQ QDDINNER 05/06/15 Levothyroxine [Synthroid] 100 mcg PO QDAC 05/06/15 Ergocalciferol [Vitamin D2] 50,000 units PO DAILY 07/15/22 Potassium Citrate [Potassium Citrate ER] 10 meq PO TID 07/15/22 Objective - Vital Signs/Intake & Output Reviewed Vital Signs: Yes Vital Signs: Vital Signs x48h Temp Pulse Resp BP Pulse Ox O2 Flow Rate 07/16/22 08:00 36.6 C 89 18 132/53 H 100 1 Intake & Output: Intake & Output 07/13/22 07/14/22 07/15/22 07/16/22 23:59 23:59 23:59 23:59 Intake Total 2331.667 240 Output Total 200 Balance 2131.667 240 - Objective General Appearance: positive: Alert, Mild distress (Sitting up at bedside commode and then later sitting up in bed. Mildly tachypneic, shallow fast breathing. No use of accessory muscles), Other (Thin white female who looks stated age) Eyes Bilateral: positive: PERRL, EOMI ENT: positive: Other (Rhinorrhea, nasal tone of voice, clear nasal discharge) Neck: positive: No JVD Respiratory: positive: Wheezes, Rhonchi, Other (Tachypneic with speaking to me much less sitting up in bed. Takes about 3 minutes to recover.Maintaining adequate O2 sats with just 1 L) Cardiovascular: positive: Regular rate & rhythm Abdomen: positive: Non-tender, No organomegaly, Nml bowel sounds, No distention Skin: positive: Warm, Dry Extremities: positive: Full ROM, No pedal edema Neurologic/Psychiatric: positive: Oriented x3, CN's nml (2-12), Motor nml (But g eneralized weakness. Just sitting up to go to the bedside commode and get back in bed completely wiped her out and she is exhausted) - Lab Results Fish Bones: 07/15/22 12:43 07/15/22 12:43 Other Labs: Lab Results x24hrs 07/16/22 07/15/22 07/15/22 Range/Units 06:56 16:38 12:43 WBC (4.8-10.8) x10^3/uL RBC (4.20-5.40) 10^6/uL Hgb (12.0-16.0) g/dL Hct (37.0-47.0) % MCV (81.0-99.0) fL MCH (27.0-31.0) pg MCHC (32.0-36.0) g/dL RDW (12.0-15.0) % Plt Count (130-450) 10^3/uL MPV (7.9-10.8) fL Neut # (Auto) Lymph # (Auto) Forrest # (Auto) Eos # (Auto) Baso # (Auto) Absolute Nucleated RBC Total Counted Band Neuts % (Manual) (0 - 10) % Reactive Lymphs % (Man) % Abnorm Lymph % (Manual) % Nucleated RBC % Neutrophils # (Manual) (1.5-6.6) 10^3/uL Lymphocytes # (Manual) (1.5-3.5) 10^3/uL Monocytes # (Manual) (0.0-1.0) 10^3/uL Eosinophils # (Manual) (0-0.7) 10^3/uL Basophils # (Manual) (0-0.1) 10^3/uL Differential Comment WBC Morphology (NORMAL) Platelet Estimate (NORMAL) Platelet Morphology (NORMAL) RBC Morph Micro Appear (NORMAL) Sodium 133 L (135-145) mmol/L Potassium 2.9 L (3.5-5.0) mmol/L Chloride 91 L (101-111) mmol/L Carbon Dioxide 23 (21-32) mmol/L Anion Gap 19.0 H (6-13) BUN 30 H (6-20) mg/dL Creatinine 0.7 (0.4-1.0) mg/dL Estimated GFR (MDRD) 85 L (>89) Glucose 158 H (70-100) mg/dL Estimat Average Glucose 148 H (70-100) mg/dL Hemoglobin A1c % 6.8 H (4.27-6.07) % Lactic Acid 3.4 H* (0.5-2.2) mmol/L Calcium 8.3 L (8.5-10.3) mg/dL Total Bilirubin 2.8 H (0.2-1.0) mg/dL AST 39 (10-42) IU/L ALT 20 (10-60) IU/L Alkaline Phosphatase 57 (42-121) IU/L Total Protein 7.2 (6.7-8.2) g/dL Albumin 3.0 L (3.2-5.5) g/dL Globulin 4.2 (2.1-4.2) g/dL Albumin/Globulin Ratio 0.7 L (1.0-2.2) Lipase 23 (22-51) U/L Nasal Adenovirus (PCR) Nasal B. parapertussis DNA (PCR) Nasal Coronavir 229E PCR Nasal Coronavir HKU1 PCR Nasal Coronavir NL63 PCR Nasal Coronavir OC43 PCR Nasal Enterovir/Rhinovir PCR Nasal Influenza A H3 PCR Nasal Influenza B PCR Nasal Parainfluen 1 PCR Nasal Parainfluen 2 PCR Nasal Parainfluen 3 PCR Nasal Parainfluen 4 PCR Nasal RSV (PCR) Nasal B.pertussis DNA PCR Nasal C.pneumoniae (PCR) Jc Human Metapneumo PCR Nasal M.pneumoniae (PCR) Nasal SARS-CoV-2 (PCR) 07/15/22 07/15/22 Range/Units 12:43 12:14 WBC 13.1 H (4.8-10.8) x10^3/uL RBC 5.04 (4.20-5.40) 10^6/uL Hgb 14.0 (12.0-16.0) g/dL Hct 42.9 (37.0-47.0) % MCV 85.1 (81.0-99.0) fL MCH 27.8 (27.0-31.0) pg MCHC 32.6 (32.0-36.0) g/dL RDW 13.6 (12.0-15.0) % Plt Count 344 (130-450) 10^3/uL MPV 10.7 (7.9-10.8) fL Neut # (Auto) Not Reportable Lymph # (Auto) Not Reportable Forrest # (Auto) Not Reportable Eos # (Auto) Not Reportable Baso # (Auto) Not Reportable Absolute Nucleated RBC Not Reportable Total Counted 100 Band Neuts % (Manual) 27 H (0 - 10) % Reactive Lymphs % (Man) 2 % Abnorm Lymph % (Manual) 0 % Nucleated RBC % Not Reportable Neutrophils # (Manual) 11.5 H (1.5-6.6) 10^3/uL Lymphocytes # (Manual) 1.4 L (1.5-3.5) 10^3/uL Monocytes # (Manual) 0.1 (0.0-1.0) 10^3/uL Eosinophils # (Manual) 0.0 (0-0.7) 10^3/uL Basophils # (Manual) 0.0 (0-0.1) 10^3/uL Differential Comment MANUAL DIFFERENTIAL WBC Morphology 4+ TOXIC GRANULATION (NORMAL) Platelet Estimate NORMAL (130-450,000) (NORMAL) Platelet Morphology NORMAL APPEARANCE (NORMAL) RBC Morph Micro Appear NORMAL APPEARANCE (NORMAL) Sodium (135-145) mmol/L Potassium (3.5-5.0) mmol/L Chloride (101-111) mmol/L Carbon Dioxide (21-32) mmol/L Anion Gap (6-13) BUN (6-20) mg/dL Creatinine (0.4-1.0) mg/dL Estimated GFR (MDRD) (>89) Glucose (70-100) mg/dL Estimat Average Glucose (70-100) mg/dL Hemoglobin A1c % (4.27-6.07) % Lactic Acid (0.5-2.2) mmol/L Calcium (8.5-10.3) mg/dL Total Bilirubin (0.2-1.0) mg/dL AST (10-42) IU/L ALT (10-60) IU/L Alkaline Phosphatase (42-121) IU/L Total Protein (6.7-8.2) g/dL Albumin (3.2-5.5) g/dL Globulin (2.1-4.2) g/dL Albumin/Globulin Ratio (1.0-2.2) Lipase (22-51) U/L Nasal Adenovirus (PCR) NOT DETECTED Nasal B. parapertussis DNA (PCR) NOT DETECTED Nasal Coronavir 229E PCR NOT DETECTED Nasal Coronavir HKU1 PCR NOT DETECTED Nasal Coronavir NL63 PCR NOT DETECTED Nasal Coronavir OC43 PCR NOT DETECTED Nasal Enterovir/Rhinovir PCR NOT DETECTED Nasal Influenza A H3 PCR DETECTED A Nasal Influenza B PCR NOT DETECTED Nasal Parainfluen 1 PCR NOT DETECTED Nasal Parainfluen 2 PCR NOT DETECTED Nasal Parainfluen 3 PCR NOT DETECTED Nasal Parainfluen 4 PCR NOT DETECTED Nasal RSV (PCR) NOT DETECTED Nasal B.pertussis DNA PCR NOT DETECTED Nasal C.pneumoniae (PCR) NOT DETECTED Jc Human Metapneumo PCR NOT DETECTED Nasal M.pneumoniae (PCR) NOT DETECTED Nasal SARS-CoV-2 (PCR) NOT DETECTED Sepsis Event Note (H) - Evaluation Current Stage of Sepsis: Sepsis Possible source of Sepsis: positive: Pulmonary - Sepsis Criteria Sepsis Criteria: Recorded Heart Rate greater than 90 bpm, Recorded Respiratory Rate greater than 20, Respiratory: Increasing oxygen requirements, WBC count greater than 10% bands, WBC count greater than 12,000 or less than 4000 Assessment/Plan - Problem List (1) Sepsis Impression: She met sepsis criteria with tachycardia, respiratory rate, hypoxia, and white cell count. Today's labs are pending. Will review her status with these come back. Today she looks minimally better t bush yesterday. At this time I am presuming her sepsis is from viral pneumonia or a secondary bacterial pneumonia. Qualifiers: Sepsis type: sepsis due to unspecified organism Sepsis acute organ dysfunction status: unspecified Qualified Code(s): A41.9 - Sepsis, unspecified organism (2) Pneumonia Impression: On empiric antibiotic therapy for secondary bacterial pneumonia. But at this time I presume her to have influenza A as a cause of viral pneumonia.However she has diarrhea, has atypical inflator chest x-ray and I am using azithromycin for atypical pneumonia. I have explained to the patient yesterday and today that this will be mainly supportive care to get her through this acute phase of illness. Thankfully she is not requiring more oxygen. Qualifiers: Pneumonia type: due to unspecified organism Laterality: bilateral Lung location: unspecified part of lung Qualified Code(s): J18.9 - Pneumonia, unspecified organism (3) Influenza A Impression: Outside the window for Tamiflu. Again mainly focusing on supportive care with IV fluids, bronchodilators, Tylenol, and oxygen. (4) Hypoxia Impression: Holding stable and only requiring 1 L and maintaining oxygen as well. I told her that was a good sign. We will continue to follow and monitor. (5) Hypokalemia Impression: Most likely due to the diarrhea she is experiencing. We will keep on supplementing and recheck levels daily. Today's labs are pending right now
[2022-07-16] MEDS: INSULIN LISPRO 300 UNIT/3 ML PEN SUBQ SCH ×4 (12:00→20:51)
--- NOTE | 2022-07-16 12:16 | PHARMACY PROGRESS NOTE ---
- Best Possible Medication History Admit Date and Time: 07/15/22 1418 Processed by: Pharmacy Medication History completed: Yes Secondary Source(s): Physician records, Insurance records, Previous admit records As the person ultimately responsible for medication therapy, providers are able to order a medication from an existing home medication list in [facility] via the "Reconcile Routine" prior to Confirmation of that medication by system support administrator. Such practice is discouraged except when the physician, in their clinical judgment, deems that a medical need exists for a medication without regard to previous use.
[2022-07-16 12:41] LABS: EOSINOPHILS # (AUTO) 0.1 10^3/uL (0.0-0.7); EOSINOPHILS % (AUTO) 0.3 %; HCT - HEMATOCRIT 40.8 % (37.0-47.0); HGB - HEMOGLOBIN 13.4 g/dL (12.0-16.0); LYMPHOCYTES # (AUTO) 1.4 10^3/uL (1.5-3.5); LYMPHOCYTES % (AUTO) 7.1 %; MEAN CORPUSCULAR HEMOGLOBIN 27.7 pg (27.0-31.0); MEAN CORPUSCULAR HGB CONC 32.8 g/dL (32.0-36.0); MEAN CORPUSCULAR VOLUME 84.5 fL (81.0-99.0); MEAN PLATELET VOLUME 10.8 fL (7.9-10.8); MONOCYTES # (AUTO) 0.4 10^3/uL (0.0-1.0); MONOCYTES % (AUTO) 2.1 %; NEUTROPHILS # (AUTO) 17.6 10^3/uL (1.5-6.6); NEUTROPHILS % (AUTO) 87.2 %; PLT - PLATELET COUNT 410 10^3/uL (130-450); RED BLOOD COUNT 4.83 10^6/uL (4.20-5.40); RED CELL DISTRIBUTION WIDTH 13.9 % (12.0-15.0); WHITE BLOOD COUNT 20.1 x10^3/uL (4.8-10.8)
[2022-07-16 12:42] LABS: SLIDE REVIEW? Indicated
[2022-07-16] MEDS: ENOXAPARIN 40 MG/0.4 ML SYRINGE SUBQ SCH (13:00)
[2022-07-16 13:54] LABS: PLATELET ESTIMATE, MANUAL NORMAL (130-450,000) (NORMAL)
[2022-07-16 13:56] LABS: DIFFERENTIAL COMMENT MANUAL=AUTO DIFF; PLATELET MORPHOLOGY NORMAL APPEARANCE (NORMAL); RBC MORPHOLOGY (MULTIPLE) NORMAL APP (NORMAL); WBC MORPHOLOGY (MULTIPLE) 1+ DOHLE B (NORMAL)
[2022-07-16 17:39] LABS: CALCIUM 7.9 mg/dL (8.5-10.3); CREATININE 0.5 mg/dL (0.4-1.0); POTASSIUM 3.7 mmol/L (3.5-5.0)
[2022-07-16] MEDS: INSULIN GLARGINE-YFGN 300 UNIT/3 ML PEN SUBQ SCH (20:50)
[2022-07-17] MEDS: ACETAMINOPHEN 325 MG TABLET PO PRN (01:26)
[2022-07-17] MEDS: SODIUM CHLORIDE FLUSH 0.9% 10 ML SYRINGE IVP SCH ×4 (01:30→23:45)
[2022-07-17 05:51] LABS: EOSINOPHILS % (AUTO) 0.3 %; HGB - HEMOGLOBIN 13.1 g/dL (12.0-16.0)
[2022-07-17 05:56] LABS: HCT - HEMATOCRIT 39.1 % (37.0-47.0); LYMPHOCYTES % (AUTO) 6.9 %; MEAN CORPUSCULAR HEMOGLOBIN 28.3 pg (27.0-31.0); MEAN CORPUSCULAR HGB CONC 33.5 g/dL (32.0-36.0); MEAN CORPUSCULAR VOLUME 84.4 fL (81.0-99.0); NEUTROPHILS % (AUTO) 85.4 %; PLT - PLATELET COUNT 448 10^3/uL (130-450); RED BLOOD COUNT 4.63 10^6/uL (4.20-5.40); WHITE BLOOD COUNT 28.7 x10^3/uL (4.8-10.8)
[2022-07-17 06:00] LABS: CALCIUM 7.4 mg/dL (8.5-10.3); CREATININE 0.4 mg/dL (0.4-1.0); POTASSIUM 2.9 mmol/L (3.5-5.0)
[2022-07-17 06:23] LABS: ABNORMAL LYMPHS % (MANUAL) 4 %; BAND NEUTROPHILS % (MANUAL) 29 %; LYMPHOCYTES # (MANUAL) 2.9 10^3/uL (1.5-3.5); LYMPHOCYTES % (MANUAL) 5 %; MONOCYTES # (MANUAL) 0.3 10^3/uL (0.0-1.0); NEUTROPHILS # (MANUAL) 25.5 10^3/uL (1.5-6.6); RBC MORPHOLOGY (MULTIPLE) NORMAL APPEARANCE (NORMAL); REACTIVE LYMPHS % (MANUAL) 1 %
[2022-07-17 06:24] LABS: DIFFERENTIAL COMMENT MANUAL DIFFERENTIAL; PLATELET ESTIMATE, MANUAL INCREASED (>450,000) (NORMAL); PLATELET MORPHOLOGY NORMAL APPEARANCE (NORMAL)
[2022-07-17] MEDS: cefTRIAXone 1 GM in SODIUM CHLORIDE 0.9% MINIBAG 100 ML IV SCH (08:30)
[2022-07-17] MEDS: ENOXAPARIN 40 MG/0.4 ML SYRINGE SUBQ SCH (08:31)
[2022-07-17] MEDS: POTASSIUM CHLOR 10 MEQ/100 ML 10 MEQ/100 ML BAG IV SCH ×8 (08:31→16:12)
[2022-07-17] MEDS: INSULIN LISPRO 300 UNIT/3 ML PEN SUBQ SCH ×4 (08:32→21:43)
[2022-07-17] MEDS: AZITHROMYCIN INJ 500 MG in SODIUM CHLORIDE 0.9% 250 ML IV SCH (09:19)
--- NOTE | 2022-07-17 10:50 | PROVIDER PROGRESS NOTE ---
Subjective - Prog Note Date Prog Note Date: 07/17/22 Prog Note Time: 10:47 - Subjective Pt reports feeling: Improved Subjective: Bridgett is improving slowly. In bed she looks weak and tired, still coughing but it's improving. Nursing reports that she was able to get out of bed with assistance and she was able to get to the bathroom instead of the commode this morning and she only desatted to 92 on room air while she did this. It did take all of her energy to do this, but she was able to sit in her chair while eating breakfast as well. She feels very weak, and she's not sure that her would be able to give her all the help she needs right now. When she went to the bathroom this morning she did not have diarrhea anymore, soft but formed stool Current Medications - Current Medications Current Medications: Active Medications Acetaminophen (Acetaminophen 325 Mg Tablet) 650 mg PO Q4HR PRN PRN Reason: Pain 1 to 4, or Fever Last Admin: 07/17/22 01:26 Dose: 650 mg Diphenoxylate HCl/Atropine (Diphenox/Atropine 2.5/0.025 Mg Tablet) 1 tab PO QID PRN PRN Reason: Diarrhea Enoxaparin Sodium (Enoxaparin 40 Mg/0.4 Ml Syringe) 40 mg SUBQ DAILY [facility] Last Admin: 07/17/22 08:31 Dose: 40 mg Ceftriaxone Sodium 1 gm/ (Sodium Chloride) 100 mls @ 200 mls/hr IV DAILY [facility] Stop: 07/21/22 08:59 Last Infusion: 07/17/22 09:21 Dose: Infused Potassium Chloride (Potassium Chloride) 10 meq in 100 mls @ 100 mls/hr IV Q1H [facility] Stop: 07/17/22 15:59 Last Admin: 07/17/22 10:37 Dose: 100 mls/hr Ibuprofen (Ibuprofen 400 Mg Tablet) 400 mg PO Q4HR PRN PRN Reason: Pain 1 to 4 Insulin Glargine-yfgn (Insulin Glargine-Yfgn 300 Unit/3 Ml Pen) 10 unit SUBQ QPM [facility] Last Admin: 07/16/22 20:50 Dose: 10 unit Insulin Human Lispro (Insulin Lispro 300 Unit/3 Ml Pen) 1 - 9 unit SUBQ 0800,1200,1700,2100 [facility]; Protocol Last Admin: 07/17/22 08:32 Dose: Not Given Ondansetron HCl (Ondansetron Odt 4 Mg Tablet) 4 mg TL Q6HR PRN PRN Reason: Nausea / Vomiting Ondansetron HCl (Ondansetron 4 Mg/2 Ml Vial) 4 mg IVP Q6HR PRN PRN Reason: Nausea / Vomiting Oxycodone HCl (Oxycodone 5 Mg Tablet) 5 mg PO Q4HR PRN PRN Reason: Pain 5 to 7 Sodium Chloride (Sodium Chloride Flush 0.9% 10 Ml Syringe) 10 ml IVP PRN PRN PRN Reason: NEEDED PER PROVIDER ORDERS Sodium Chloride (Sodium Chloride Flush 0.9% 10 Ml Syringe) 10 ml IVP 0 100,0900,1700 [facility] Last Admin: 07/17/22 09:24 Dose: Not Given Aspirin [[place] Aspirin] 81 mg PO DAILY 05/06/15 Insulin Glargine,Hum.rec.anlog [Lantus] 20 units SQ DAILY 05/06/15 Insulin Lispro [Humalog] 5 - 10 units SQ QDDINNER 05/06/15 Levothyroxine [Synthroid] 100 mcg PO QDAC 05/06/15 Ergocalciferol [Vitamin D2] 50,000 units PO DAILY 07/15/22 Potassium Citrate [Potassium Citrate ER] 10 meq PO TID 07/15/22 Objective - Vital Signs/Intake & Output Vital Signs: Vital Signs x48h Temp Pulse Resp BP Pulse Ox O2 Flow Rate 07/17/22 08:00 36.4 C L 87 20 129/54 L 100 2 Intake & Output: Intake & Output 07/14/22 07/15/22 07/16/22 07/17/22 23:59 23:59 23:59 23:59 Intake Total 2331.667 3088.333 531.667 Output Total 200 600 850 Balance 2131.667 2488.333 -318.333 - Objective General Appearance: positive: No acute distress, Alert, Lethargic Eyes Bilateral: positive: Normal inspection, PERRL, EOMI ENT: positive: No signs of dehydration Neck: positive: No JVD. negative: Stiff neck Respiratory: positive: Chest non-tender, Wheezes, Rales, Rhonchi Cardiovascular: positive: Regular rate & rhythm Abdomen: positive: Non-tender, No organomegaly, No distention. negative: Tenderness Back: negative: CVA tenderness (R), CVA tenderness (L) Skin: positive: Warm, Dry Neurologic/Psychiatric: positive: Oriented x3, CN's nml (2-12), Mood/affect nml - Lab Results Fish Bones: 07/17/22 05:44 07/17/22 05:44 Other Labs: Lab Results x24hrs 07/17/22 07/17/22 07/17/22 Range/Units 05:44 05:44 05:44 WBC 28.7 H (4.8-10.8) x10^3/uL RBC 4.63 (4.20-5.40) 10^6/uL Hgb 13.1 (12.0-16.0) g/dL Hct 39.1 (37.0-47.0) % MCV 84.4 (81.0-99.0) fL MCH 28.3 (27.0-31.0) pg MCHC 33.5 (32.0-36.0) g/dL RDW 14.0 (12.0-15.0) % Plt Count 448 (130-450) 10^3/uL MPV 10.0 (7.9-10.8) fL Neut # (Auto) Not Reportable (1.5-6.6) 10^3/uL Lymph # (Auto) Not Reportable (1.5-3.5) 10^3/uL [place] # (Auto) Not Reportable (0.0-1.0) 10^3/uL Eos # (Auto) Not Reportable (0.0-0.7) 10^3/uL Baso # (Auto) Not Reportable (0.0-0.1) 10^3/uL Absolute Nucleated RBC Not Reportable x10^3/uL Total Counted 100 Band Neuts % (Manual) 29 H Reactive Lymphs % (Man) 1 % Abnorm Lymph % (Manual) 4 Nucleated RBC % Not Reportable /100WBC Neutrophils # (Manual) 25.5 H Lymphocytes # (Manual) 2.9 Monocytes # (Manual) 0.3 Eosinophils # (Manual) 0.0 Basophils # (Manual) 0.0 Differential Comment MANUAL DIFFERENTIAL Manual Slide Review WBC Morphology (NORMAL) Platelet Estimate INCREASED (>450,000) (NORMAL) Platelet Morphology NORMAL APPEARANCE (NORMAL) RBC Morph Micro Appear NORMAL APPEARANCE (NORMAL) Sodium 134 L (135-145) mmol/L Potassium 2.9 L (3.5-5.0) mmol/L Chloride 96 L (101-111) mmol/L Carbon Dioxide 27 (21-32) mmol/L Anion Gap 11.0 (6-13) BUN 14 (6-20) mg/dL Creatinine 0.4 (0.4-1.0) mg/dL Estimated GFR (MDRD) 161 (>89) Glucose 155 H (70-100) mg/dL Lactic Acid 1.4 (0.5-2.2) mmol/L Calcium 7.4 L (8.5-10.3) mg/dL Stl C. diff Tox B Gene (NEGATIVE) 07/16/22 07/16/22 07/16/22 Range/Units 20:15 12:03 12:03 WBC (4.8-10.8) x10^3/uL RBC (4.20-5.40) 10^6/uL Hgb (12.0-16.0) g/dL Hct (37.0-47.0) % MCV (81.0-99.0) fL MCH (27.0-31.0) pg MCHC (32.0-36.0) g/dL RDW (12.0-15.0) % Plt Count (130-450) 10^3/uL MPV (7.9-10.8) fL Neut # (Auto) (1.5-6.6) 10^3/uL Lymph # (Auto) (1.5-3.5) 10^3/uL [place] # (Auto) (0.0-1.0) 10^3/uL Eos # (Auto) (0.0-0.7) 10^3/uL Baso # (Auto) (0.0-0.1) 10^3/uL Absolute Nucleated RBC x10^3/uL Total Counted Band Neuts % (Manual) Reactive Lymphs % (Man) % Abnorm Lymph % (Manual) Nucleated RBC % /100WBC Neutrophils # (Manual) Lymphocytes # (Manual) Monocytes # (Manual) Eosinophils # (Manual) Basophils # (Manual) Differential Comment Manual Slide Review WBC Morphology (NORMAL) Platelet Estimate (NORMAL) Platelet Morphology (NORMAL) RBC Morph Micro Appear (NORMAL) Sodium 139 (135-145) mmol/L Potassium 3.7 (3.5-5.0) mmol/L Chloride 99 L (101-111) mmol/L Carbon Dioxide 25 (21-32) mmol/L Anion Gap 15.0 H (6-13) BUN 15 (6-20) mg/dL Creatinine 0.5 (0.4-1.0) mg/dL Estimated GFR (MDRD) 125 (>89) Glucose 196 H (70-100) mg/dL Lactic Acid 2.3 H (0.5-2.2) mmol/L Calcium 7.9 L (8.5-10.3) mg/dL Stl C. diff Tox B Gene NEGATIVE (NEGATIVE) 07/16/22 Range/Units 12:03 WBC 20.1 H (4.8-10.8) x10^3/uL RBC 4.83 (4.20-5.40) 10^6/uL Hgb 13.4 (12.0-16.0) g/dL Hct 40.8 (37.0-47.0) % MCV 84.5 (81.0-99.0) fL MCH 27.7 (27.0-31.0) pg MCHC 32.8 (32.0-36.0) g/dL RDW 13.9 (12.0-15.0) % Plt Count 410 (130-450) 10^3/uL MPV 10.8 (7.9-10.8) fL Neut # (Auto) 17.6 H (1.5-6.6) 10^3/uL Lymph # (Auto) 1.4 L (1.5-3.5) 10^3/uL [place] # (Auto) 0.4 (0.0-1.0) 10^3/uL Eos # (Auto) 0.1 (0.0-0.7) 10^3/uL Baso # (Auto) 0.0 (0.0-0.1) 10^3/uL Absolute Nucleated RBC 0.00 x10^3/uL Total Counted Band Neuts % (Manual) Not Reportable Reactive Lymphs % (Man) % Abnorm Lymph % (Manual) Not Reportable Nucleated RBC % 0.0 /100WBC Neutrophils # (Manual) Not Reportable Lymphocytes # (Manual) Not Reportable Monocytes # (Manual) Not Reportable Eosinophils # (Manual) Not Reportable Basophils # (Manual) Not Reportable Differential Comment MANUAL=AUTO DIFF Manual Slide Review Indicated WBC Morphology 1+ DOHLE B (NORMAL) Platelet Estimate NORMAL (130-450,000) (NORMAL) Platelet Morphology NORMAL APPEARANCE (NORMAL) RBC Morph Micro Appear NORMAL JF (NORMAL) Sodium (135-145) mmol/L Potassium (3.5-5.0) mmol/L Chloride (101-111) mmol/L Carbon Dioxide (21-32) mmol/L Anion Gap (6-13) BUN (6-20) mg/dL Creatinine (0.4-1.0) mg/dL Estimated GFR (MDRD) (>89) Glucose (70-100) mg/dL Lactic Acid (0.5-2.2) mmol/L Calcium (8.5-10.3) mg/dL Stl C. diff Tox B Gene (NEGATIVE) Sepsis Event Note (H) - Evaluation Current Stage of Sepsis: Sepsis Possible source of Sepsis: positive: Pulmonary - Sepsis Criteria Sepsis Criteria: Recorded Heart Rate greater than 90 bpm, Recorded Respiratory Rate greater than 20, Respiratory: Increasing oxygen requirements, WBC count greater than 10% bands, WBC count greater than 12,000 or less than 4000 Assessment/Plan - Problem List (1) Sepsis Impression: She met sepsis criteria with tachycardia, respiratory rate, hypoxia, and white cell count. HR is within normal limits, she is still using 1-2L of oxygen via nasal cannula and respiratory rate is between 20-22. Her white cell count is still high and rising. On admission, 07/15 she was 13.1, 07/16 20.1, 07/17 28.7. She finished 3 doses of azithromycin 500mg IV and is still receiving Ceftriaxone 1gm IV scheduled until 07/21. This should cover the most likely pathogens for pneumonia, so this is suspicious of an atypical pneumonia or possibly an infection somewhere else, like a UTI, cellulitis, or other respiratory pathogen. Her stool culture was negative for C. diff and her diarrhea is improving. There is no visible sign of cellulitis or soft tissue infection and she has no open wounds on her extremities or trunk, she's not tachycardic, afebrile, and normotensive. She denies dysuria, frequency, urgency and hematuria. There were no blood cultures taken in the ED before she was empirically started on antibiotics, if she can produce a sputum culture we may be able to get more information from that. Today she looks minimally better than yesterday. At this time I am presuming her sepsis is from viral pneumonia or a secondary bacterial pneumonia. Plan: - Urinalysis today - continue ceftriaxone IV - sputum culture - monitor CBC daily Qualifiers: Sepsis type: sepsis due to unspecified organism Sepsis acute organ dysfunction status: unspecified Qualified Code(s): A41.9 - Sepsis, unspecified organism (2) Pneumonia Impression: On empiric antibiotic therapy for secondary bacterial pneumonia. Her diarrhea has improve and she is better able to get out of bed, even able to make it to the bathroom today instead of the bedside commode. She has finished her course of IV azithromycin. I have explained to the patient yesterday and today that this will be mainly supportive care to get her through this acute phase of illness. Thankfully she is not requiring more oxygen and she was able to ambulate to the bathroom and only desatted to 92. Qualifiers: Pneumonia type: due to unspecified organism Laterality: bilateral Lung location: unspecified part of lung Qualified Code(s): J18.9 - Pneumonia, unspecified organism (3) Influenza A Impression: Outside the window for Tamiflu. Again mainly focusing on supportive care with IV fluids, bronchodilators, Tylenol, and oxygen. (4) Hypoxia Impression: Holding stable and only requiring 1 L and maintaining oxygen as well. I told her that was a good sign. We will continue to follow and monitor. (5) Hypokalemia Impression: Potassium is still low today at 2.9, but her diarrhea has subsided so I expect her hypokalemia to improve over the next few days. Plan - continue to monitor K+ daily - continue K rider until she is within normal limits. Qualifiers: Sepsis type: sepsis due to unspecified organism Sepsis acute organ dysfunction status: unspecified Qualified Code(s): A41.9 - Sepsis, unspecified organism
[2022-07-17] MEDS: LACTOBACILLUS RHAMNOSUS GG CAPSULE PO SCH (13:02)
[2022-07-17 16:27] LABS: BILIRUBIN,URINE NEGATIVE (NEGATIVE); GLUCOSE, URINE (UA) NEGATIVE (NEGATIVE); KETONES,URINE (UA) NEGATIVE (NEGATIVE); LEUKOCYTE ESTERASE, URINE SMALL (NEGATIVE); NITRITE,URINE NEGATIVE (NEGATIVE); OCCULT BLOOD,URINE TRACE-INTA (NEGATIVE); PH,URINE 6.5 PH (5.0-7.5); PROTEIN,URINE NEGATIVE (NEGATIVE); UROBILINOGEN,URINE 0.2 (NORMAL) E.U./dL (NORMAL)
[2022-07-17 16:35] LABS: CLARITY,URINE HAZY (CLEAR)
[2022-07-17 16:45] LABS: BACTERIA,URINE Rare /HPF (None Seen); RBC,URINE 0-5 /HPF (0-5); SQUAMOUS EPITHELIAL CELL,UR FEW Squamous (<= Few)
[2022-07-17] MEDS: INSULIN GLARGINE-YFGN 300 UNIT/3 ML PEN SUBQ SCH (21:43)
[2022-07-18 05:36] LABS: EOSINOPHILS % (AUTO) 0.4 %; HCT - HEMATOCRIT 40.2 % (37.0-47.0); LYMPHOCYTES % (AUTO) 8.5 %; MEAN CORPUSCULAR HEMOGLOBIN 27.5 pg (27.0-31.0); MEAN CORPUSCULAR HGB CONC 32.3 g/dL (32.0-36.0); MONOCYTES % (AUTO) 2.3 %; NEUTROPHILS % (AUTO) 81.4 %; PLT - PLATELET COUNT 535 10^3/uL (130-450); RED BLOOD COUNT 4.73 10^6/uL (4.20-5.40); RED CELL DISTRIBUTION WIDTH 13.9 % (12.0-15.0); WHITE BLOOD COUNT 30.3 x10^3/uL (4.8-10.8)
[2022-07-18 05:45] LABS: CALCIUM 7.7 mg/dL (8.5-10.3); CREATININE 0.4 mg/dL (0.4-1.0); POTASSIUM 3.4 mmol/L (3.5-5.0)
[2022-07-18 05:54] LABS: ABNORMAL LYMPHS % (MANUAL) 0 %
[2022-07-18 06:24] LABS: BAND NEUTROPHILS % (MANUAL) 10 %; LYMPHOCYTES # (MANUAL) 2.7 10^3/uL (1.5-3.5); LYMPHOCYTES % (MANUAL) 9 %; METAMYELOCYTES % (MANUAL) 5 %; MONOCYTES # (MANUAL) 0.3 10^3/uL (0.0-1.0); MYELOCYTES % (MANUAL) 4 %; NEUTROPHILS # (MANUAL) 24.5 10^3/uL (1.5-6.6); PLATELET ESTIMATE, MANUAL INCREASED (>450,000) (NORMAL); RBC MORPHOLOGY (MULTIPLE) NORMAL APPEARANCE (NORMAL)
[2022-07-18 06:25] LABS: DIFFERENTIAL COMMENT MANUAL DIFFERENTIAL; WBC MORPHOLOGY (MULTIPLE) 2+ TOXIC GRANULATION (NORMAL)
[2022-07-18] MEDS: LACTOBACILLUS RHAMNOSUS GG CAPSULE PO SCH (08:06)
[2022-07-18] MEDS: cefTRIAXone 1 GM in SODIUM CHLORIDE 0.9% MINIBAG 100 ML IV SCH (08:07)
[2022-07-18] MEDS: ENOXAPARIN 40 MG/0.4 ML SYRINGE SUBQ SCH (08:07)
[2022-07-18] MEDS: INSULIN LISPRO 300 UNIT/3 ML PEN SUBQ SCH ×4 (08:15→21:52)
[2022-07-18] MEDS: POTASSIUM CHLORIDE 20 MEQ TABLET PO SCH (08:15)
[2022-07-18] MEDS: SODIUM CHLORIDE FLUSH 0.9% 10 ML SYRINGE IVP SCH ×2 (08:16→17:01)
--- NOTE | 2022-07-18 16:40 | PROVIDER PROGRESS NOTE ---
Progress Note July 18, 2022 4:34 PM Patient was seen this morning and this afternoon. She says that this is the best she is felt. She says coughing is much less. She feels like her brain is back. She can think more clearly. But she is up all of how exhausted she is just to get up to do such a simple thing is getting up to go to the bathroom. She continues to be on 1 L nasal cannula and saturates at 91%. No chest pain, no new phlegm production. No abdominal pain. No urgency, no frequency, no dysuria. Active Medications Acetaminophen (Acetaminophen 325 Mg Tablet) 650 mg PO Q4HR PRN PRN Reason: Pain 1 to 4, or Fever Last Admin: 07/17/22 01:26 Dose: 650 mg Diphenoxylate HCl/Atropine (Diphenox/Atropine 2.5/0.025 Mg Tablet) 1 tab PO QID PRN PRN Reason: Diarrhea Enoxaparin Sodium (Enoxaparin 40 Mg/0.4 Ml Syringe) 40 mg SUBQ DAILY [facility] Last Admin: 07/18/22 08:07 Dose: 40 mg Ceftriaxone Sodium 1 gm/ (Sodium Chloride) 100 mls @ 200 mls/hr IV DAILY [facility] Stop: 07/21/22 08:59 Last Infusion: 07/18/22 08:40 Dose: Infused Ibuprofen (Ibuprofen 400 Mg Tablet) 400 mg PO Q4HR PRN PRN Reason: Pain 1 to 4 Insulin Glargine-yfgn (Insulin Glargine-Yfgn 300 Unit/3 Ml Pen) 10 unit SUBQ QPM [facility] Last Admin: 07/17/22 21:43 Dose: 10 unit Insulin Human Lispro (Insulin Lispro 300 Unit/3 Ml Pen) 1 - 9 unit SUBQ 0800,1200,1700,2100 [facility]; Protocol Last Admin: 07/18/22 12:32 Dose: 3 unit Lactobacillus Rhamnosus (Lactobacillus Rhamnosus Gg Capsule) 1 cap PO DAILY [facility] Last Admin: 07/18/22 08:06 Dose: 1 cap Ondansetron HCl (Ondansetron Odt 4 Mg Tablet) 4 mg TL Q6HR PRN PRN Reason: Nausea / Vomiting Ondansetron HCl (Ondansetron 4 Mg/2 Ml Vial) 4 mg IVP Q6HR PRN PRN Reason: Nausea / Vomiting Oxycodone HCl (Oxycodone 5 Mg Tablet) 5 mg PO Q4HR PRN PRN Reason: Pain 5 to 7 Potassium Chloride (Potassium Chloride 20 Meq Tablet) 20 meq PO DAILYWM [facility] Last Admin: 07/18/22 08:15 Dose: 20 meq Sodium Chloride (Sodium Chloride Flush 0.9% 10 Ml Syringe) 10 ml IVP PRN PRN PRN Reason: NEEDED PER PROVIDER ORDERS Sodium Chloride (Sodium Chloride Flush 0.9% 10 Ml Syringe) 10 ml IVP 0100,0900 ,1700 [facility] Last Admin: 07/18/22 08:16 Dose: 10 ml Aspirin [[place] Aspirin] 81 mg PO DAILY 05/06/15 Insulin Glargine,Hum.rec.anlog [Lantus] 20 units SQ DAILY 05/06/15 Insulin Lispro [Humalog] 5 - 10 units SQ QDDINNER 05/06/15 Levothyroxine [Synthroid] 100 mcg PO QDAC 05/06/15 Ergocalciferol [Vitamin D2] 50,000 units PO DAILY 07/15/22 Potassium Citrate [Potassium Citrate ER] 10 meq PO TID 07/15/22 Temperature is 36.6. Heart rate 86. Blood pressure 140/67. Respirations 18. 92% saturated with 1 L. 77.5 kg, 5 feet 7 inches tall Pleasant middle-age female who looks quite thin sitting upright in chair, reading a book and watching TV No labored respiration, looks comfortable with a nasal tone of voice and nasal cannula in place Neck is supple without adenopathy Prolonged and exhalation phase but no outright wheezing today. Coarse upper airway sounds. But no crackles or rhonchi Regular rate and rhythm Abdomen soft, nontender Extremities without any edema. Chemistry today with a potassium of 3.4. Glucose 140. White cell count continues to rise. She was at 13 then 20 then 28 yesterday and today she is 30.3. Platelets are 535. 5% metamyelocytes and 4% myelocytes. She has toxic granulation. Urine clean-catch has no growth from July 17 Sputum culture from July 18 is pending. She has gram-positive cocci in pairs, chains, and clusters. Rare gram-negative bacilli. Rare yeast. Many white cells. Assessment/plan 1. Sepsis. She met sepsis criteria on admission with tachycardia, respiratory rate, hypoxia and elevated white cell count. Chest x-ray showed diffuse inflammatory changes. She was treated as influenza A pneumonia and possibly a secondary bacterial pneumonia. She is received 3 days of azithromycin and is still on ceftriaxone 1 g IV. In spite of this white cell continues to rise. She still hypoxic. She herself feels tremendously better. I reevaluated sources of infection by a UA. Sputum culture so far as not helpful. Plan: Patient is clinically improved from an exam perspective and subjective complaints. Recheck chest x-ray Possibly sent home in spite of elevated white cell count if she is stable tomorrow since she says that she feels "100% better". 2. Pneumonia. As above 3. Influenza A as above 4. Hypoxia. No increased requirement during the stay. Staying stable on 1 L.
--- NOTE | 2022-07-18 18:23 | XRAY Report ---
PROCEDURE: Chest 2 View X-Ray INDICATIONS: rising wbc, stable hypoxia TECHNIQUE: 2 views of the chest were acquired. COMPARISON: 07/15/2022 FINDINGS: Surgical changes and devices: None. Lungs and pleura: Diffuse patchy bilateral perihilar airspace opacities with more consolidated airspa ce opacities in the right upper lobe and left upper lobe. This appears progressive since the prior x- ray on 07/15/2022. Mediastinum: Mediastinal contours are normal. Heart size is normal. Bones and chest wall: No suspicious bony abnormalities. Soft tissues appear unremarkable. IMPRESSION: Diffuse patchy bilateral airspace opacities consistent with pneumonia, increased compared to prior x- ray on 07/15/2022. Reviewed by: Duglas Godinez on 07/18/2022 6:22 PM [facility] Approved by: Duglas Godinez on 07/18/2022 6:22 PM [facility] Station ID: [id number]
[2022-07-18] MEDS: INSULIN GLARGINE-YFGN 300 UNIT/3 ML PEN SUBQ SCH (21:51)
[2022-07-19] MEDS: SODIUM CHLORIDE FLUSH 0.9% 10 ML SYRINGE IVP SCH ×3 (01:28→16:56)
[2022-07-19 05:31] LABS: BASOPHILS % (AUTO) 0.1 %; EOSINOPHILS % (AUTO) 0.7 %; LYMPHOCYTES % (AUTO) 10.3 %; MEAN CORPUSCULAR HEMOGLOBIN 27.8 pg (27.0-31.0); MEAN CORPUSCULAR HGB CONC 32.4 g/dL (32.0-36.0); MEAN CORPUSCULAR VOLUME 85.8 fL (81.0-99.0); MEAN PLATELET VOLUME 9.6 fL (7.9-10.8); MONOCYTES % (AUTO) 2.7 %; NEUTROPHILS % (AUTO) 79.6 %; PLT - PLATELET COUNT 516 10^3/uL (130-450); RED BLOOD COUNT 4.31 10^6/uL (4.20-5.40)
[2022-07-19 05:37] LABS: ABNORMAL LYMPHS % (MANUAL) 0 %
[2022-07-19 05:39] LABS: CALCIUM 7.6 mg/dL (8.5-10.3); CREATININE 0.3 mg/dL (0.4-1.0)
[2022-07-19 06:08] LABS: BAND NEUTROPHILS % (MANUAL) 4 %; DIFFERENTIAL COMMENT MANUAL DIFFERENTIAL; EOSINOPHILS # (MANUAL) 0.2 10^3/uL (0-0.7); LYMPHOCYTES # (MANUAL) 3.4 10^3/uL (1.5-3.5); LYMPHOCYTES % (MANUAL) 14 %; METAMYELOCYTES % (MANUAL) 1 %; MONOCYTES # (MANUAL) 1.4 10^3/uL (0.0-1.0); MYELOCYTES % (MANUAL) 1 %; NEUTROPHILS # (MANUAL) 18.5 10^3/uL (1.5-6.6); PLATELET ESTIMATE, MANUAL INCREASED (>450,000) (NORMAL); RBC MORPHOLOGY (MULTIPLE) NORMAL APPEARANCE (NORMAL); WBC MORPHOLOGY (MULTIPLE) 2+ TOXIC GRANULATION (NORMAL)
[2022-07-19] MEDS: cefTRIAXone 1 GM in SODIUM CHLORIDE 0.9% MINIBAG 100 ML IV SCH (08:54)
[2022-07-19] MEDS: LACTOBACILLUS RHAMNOSUS GG CAPSULE PO SCH (08:54)
[2022-07-19] MEDS: ENOXAPARIN 40 MG/0.4 ML SYRINGE SUBQ SCH (08:54)
[2022-07-19] MEDS: POTASSIUM CHLORIDE 20 MEQ TABLET PO SCH (08:54)
[2022-07-19] MEDS: INSULIN LISPRO 300 UNIT/3 ML PEN SUBQ SCH ×4 (08:55→21:32)
--- NOTE | 2022-07-19 09:10 | XRAY Report ---
PROCEDURE: Chest 2 View X-Ray INDICATIONS: fu pna and hypoxia, slow to respond TECHNIQUE: 2 views of the chest were acquired. COMPARISON: 07/18/2022, correlation made to CT abdomen pelvis 09/06/2021 FINDINGS: Surgical changes and devices: None. Lungs and pleura: Multifocal patchy mixed interstitial and alveolar opacities, right worse than left. There is obscuration of the right diaphragm and blunting of both lateral costophrenic angles. Probab le development of small bilateral pleural effusions. No pneumothorax. Mediastinum: Mediastinal contours are normal. Heart size is normal. Bones and chest wall: No suspicious bony abnormalities. Moderate degeneration at the right acromioc lavicular joint. Moderate compression fracture of T12, chronic. Soft tissues appear unremarkable. IMPRESSION: 1. Similar extent of multifocal bilateral mixed interstitial and alveolar opacities compared to the p rior study given change in technique. 2. Probable development of small bilateral pleural effusions. Reviewed by: Ary Moore MD on 07/19/2022 9:09 AM PST Approved by: Ary Moore MD on 07/19/2022 9:09 AM PST Station ID: [id number]
--- NOTE | 2022-07-19 11:08 | PROVIDER PROGRESS NOTE ---
Subjective - Prog Note Date Prog Note Date: 07/19/22 Prog Note Time: 11:06 - Subjective Pt reports feeling: Improved Subjective: Bridgett says she is continuing to feel better. She is coughing less but still exhausted by getting up and going to the bathroom. She is still between 90-93% on 1L via nasal cannula. Current Medications - Current Medications Current Medications: Active Medications Acetaminophen (Acetaminophen 325 Mg Tablet) 650 mg PO Q4HR PRN PRN Reason: Pain 1 to 4, or Fever Last Admin: 07/17/22 01:26 Dose: 650 mg Diphenoxylate HCl/Atropine (Diphenox/Atropine 2.5/0.025 Mg Tablet) 1 tab PO QID PRN PRN Reason: Diarrhea Enoxaparin Sodium (Enoxaparin 40 Mg/0.4 Ml Syringe) 40 mg SUBQ DAILY [facility] Last Admin: 07/19/22 08:54 Dose: 40 mg Ceftriaxone Sodium 1 gm/ (Sodium Chloride) 100 mls @ 200 mls/hr IV DAILY [facility] Stop: 07/21/22 08:59 Last Infusion: 07/19/22 09:42 Dose: Infused Ibuprofen (Ibuprofen 400 Mg Tablet) 400 mg PO Q4HR PRN PRN Reason: Pain 1 to 4 Insulin Glargine-yfgn (Insulin Glargine-Yfgn 300 Unit/3 Ml Pen) 10 unit SUBQ QPM [facility] Last Admin: 07/18/22 21:51 Dose: 10 unit Insulin Human Lispro (Insulin Lispro 300 Unit/3 Ml Pen) 1 - 9 unit SUBQ 0800,1200,1700,2100 [facility]; Protocol Last Admin: 07/19/22 08:55 Dose: Not Given Lactobacillus Rhamnosus (Lactobacillus Rhamnosus Gg Capsule) 1 cap PO DAILY [facility] Last Admin: 07/19/22 08:54 Dose: 1 cap Ondansetron HCl (Ondansetron Odt 4 Mg Tablet) 4 mg TL Q6HR PRN PRN Reason: Nausea / Vomiting Ondansetron HCl (Ondansetron 4 Mg/2 Ml Vial) 4 mg IVP Q6HR PRN PRN Reason: Nausea / Vomiting Oxycodone HCl (Oxycodone 5 Mg Tablet) 5 mg PO Q4HR PRN PRN Reason: Pain 5 to 7 Potassium Chloride (Potassium Chloride 20 Meq Tablet) 20 meq PO DAILYWM [facility] Last Admin: 07/19/22 08:54 Dose: 20 meq Sodium Chloride (Sodium Chloride Flush 0.9% 10 Ml Syringe) 10 ml IVP PRN PRN PRN Reason: NEEDED PER PROVIDER ORDERS Sodium Chloride (Sodium Chloride Flush 0.9% 10 Ml Syringe) 10 ml IVP 0100,0900,1700 [facility] Last Admin: 07/19/22 01:28 Dose: 10 ml Aspirin [[place] Aspirin] 81 mg PO DAILY 05/06/15 Insulin Glargine,Hum.rec.anlog [Lantus] 20 units SQ DAILY 05/06/15 Insulin Lispro [Humalog] 5 - 10 units SQ QDDINNER 05/06/15 Levothyroxine [Synthroid] 100 mcg PO QDAC 05/06/15 Ergocalciferol [Vitamin D2] 50,000 units PO DAILY 07/15/22 Potassium Citrate [Potassium Citrate ER] 10 meq PO TID 07/15/22 Objective - Vital Signs/Intake & Output Vital Signs: Vital Signs x48h Temp Pulse Resp BP Pulse Ox O2 Flow Rate 07/19/22 07:38 36.4 C L 82 16 147/68 H 93 1 07/19/22 07:30 1 Intake & Output: Intake & Output 07/16/22 07/17/22 07/18/22 07/19/22 23:59 23:59 23:59 23:59 Intake Total 3088.333 2726.334 2530 980 Output Total 600 1650 800 850 Balance 2488.333 5799.326 1685 130 - Objective General Appearance: positive: No acute distress, Alert Eyes Bilateral: positive: PERRL, EOMI ENT: positive: Pharynx nml, No signs of dehydration Neck: positive: No JVD Respiratory: positive: Chest non-tender. negative: Breath sounds nml (coarse breath sounds) Cardiovascular: positive: Regular rate & rhythm, No murmur, No gallop Abdomen: positive: Non-tender, No organomegaly, Nml bowel sounds, No distention Skin: positive: Warm, Dry Extremities: positive: Full ROM Neurologic/Psychiatric: positive: Oriented x3, CN's nml (2-12), Mood/affect nml - Lab Results Fish Bones: 07/19/22 04:50 07/19/22 04:50 Other Labs: Lab Results x24hrs 07/19/22 07/19/22 Range/Units 04:50 04:50 WBC 24.0 H (4.8-10.8) x10^3/uL RBC 4.31 (4.20-5.40) 10^6/uL Hgb 12.0 (12.0-16.0) g/dL Hct 37.0 (37.0-47.0) % MCV 85.8 (81.0-99.0) fL MCH 27.8 (27.0-31.0) pg MCHC 32.4 (32.0-36.0) g/dL RDW 14.0 (12.0-15.0) % Plt Count 516 H (130-450) 10^3/uL MPV 9.6 (7.9-10.8) fL Neut # (Auto) Not Reportable Lymph # (Auto) Not Reportable [place] # (Auto) Not Reportable Eos # (Auto) Not Reportable Baso # (Auto) Not Reportable Absolute Nucleated RBC Not Reportable Total Counted 100 Band Neuts % (Manual) 4 (0 - 10) % Abnorm Lymph % (Manual) 0 % Metamyelocytes % 1 H ( - 0) % Myelocytes % 1 H ( - 0) % Nucleated RBC % Not Reportable Neutrophils # (Manual) 18.5 H (1.5-6.6) 10^3/uL Lymphocytes # (Manual) 3.4 (1.5-3.5) 10^3/uL Monocytes # (Manual) 1.4 H (0.0-1.0) 10^3/uL Eosinophils # (Manual) 0.2 (0-0.7) 10^3/uL Basophils # (Manual) 0.0 (0-0.1) 10^3/uL Differential Comment MANUAL DIFFERENTIAL WBC Morphology 2+ TOXIC GRANULATION (NORMAL) Platelet Estimate INCREASED (>450,000) (NORMAL) RBC Morph Micro Appear NORMAL APPEARANCE (NORMAL) Sodium 137 (135-145) mmol/L Potassium 3.0 L (3.5-5.0) mmol/L Chloride 98 L (101-111) mmol/L Carbon Dioxide 31 (21-32) mmol/L Anion Gap 8.0 (6-13) BUN 8 (6-20) mg/dL Creatinine 0.3 L (0.4-1.0) mg/dL Estimated GFR (MDRD) 225 (>89) Glucose 98 (70-100) mg/dL Calcium 7.6 L (8.5-10.3) mg/dL Sepsis Event Note (H) - Evaluation Current Stage of Sepsis: Sepsis Possible source of Sepsis: positive: Pulmonary - Sepsis Criteria Sepsis Criteria: Recorded Heart Rate greater than 90 bpm, Recorded Respiratory Rate greater than 20, Respiratory: Increasing oxygen requirements, WBC count greater than 10% bands, WBC count greater than 12,000 or less than 4000 Assessment/Plan - Problem List (1) Sepsis Impression: She met sepsis criteria on admission with tachycardia, respiratory rate, hypoxia and elevated white cell count. Chest x-ray showed diffuse inflammatory changes. She was treated as influenza A pneumonia and possibly a secondary bacterial pneumonia. She is received 3 days of azithromycin and is still on ceftriaxone 1 g IV. Her white cell count continued to rise until today is has reduced from 30.3 to 24.0, on admission she was at 13.1. Her potassium is still low, at 3.0. I am supplementing this. Her urine culture yielded no growth. Her sputum culture was positive for staphylococcus aureus, sensitivities still to follow. In theory her Ceftriaxone should cover MSSA so I will continue unless sensitivities specify otherwise. She still needs supplemental oxygen, she is saturating between 90-93% on 1L nasal cannula today. Her repeat CXR shows a similar extent of multifocal bilaterally mixed interstitial and alveolar opacities compared to the prior study with a probably development of small bilateral pleural effusions. She seems to be improving but she still has oxygen requirements and cannot be discharged without it, however at this time it seems as though her insurance will not pay for it so she will continue to recover here until her oxygen saturation improves. Plan: - Continue supplemental O2 - continue ceftriaxone 2. Pneumonia. As above 3. Influenza A as above 4. Hypoxia. No increased requirement during the stay. Staying stable on 1 L.
[2022-07-19] MEDS: INSULIN GLARGINE-YFGN 300 UNIT/3 ML PEN SUBQ SCH (21:32)
[2022-07-20] MEDS: SODIUM CHLORIDE FLUSH 0.9% 10 ML SYRINGE IVP SCH ×3 (00:17→17:57)
[2022-07-20 04:58] LABS: BASOPHILS % (AUTO) 0.6 %; EOSINOPHILS % (AUTO) 0.9 %; HCT - HEMATOCRIT 38.3 % (37.0-47.0); HGB - HEMOGLOBIN 12.7 g/dL (12.0-16.0); LYMPHOCYTES % (AUTO) 12.5 %; MEAN CORPUSCULAR HEMOGLOBIN 28.3 pg (27.0-31.0); MEAN CORPUSCULAR HGB CONC 33.2 g/dL (32.0-36.0); MEAN CORPUSCULAR VOLUME 85.5 fL (81.0-99.0); MEAN PLATELET VOLUME 9.2 fL (7.9-10.8); NEUTROPHILS % (AUTO) 77.9 %; PLT - PLATELET COUNT 612 10^3/uL (130-450); RED BLOOD COUNT 4.48 10^6/uL (4.20-5.40); RED CELL DISTRIBUTION WIDTH 14.1 % (12.0-15.0); WHITE BLOOD COUNT 20.2 x10^3/uL (4.8-10.8)
[2022-07-20 05:07] LABS: ABNORMAL LYMPHS % (MANUAL) 0 %
[2022-07-20 05:12] LABS: CALCIUM 7.9 mg/dL (8.5-10.3); CREATININE 0.4 mg/dL (0.4-1.0); POTASSIUM 3.4 mmol/L (3.5-5.0)
[2022-07-20 05:50] LABS: BAND NEUTROPHILS % (MANUAL) 2 %; DIFFERENTIAL COMMENT MANUAL DIFFERENTIAL; EOSINOPHILS # (MANUAL) 0.2 10^3/uL (0-0.7); LYMPHOCYTES # (MANUAL) 2.4 10^3/uL (1.5-3.5); LYMPHOCYTES % (MANUAL) 12 %; METAMYELOCYTES % (MANUAL) 1 %; MONOCYTES # (MANUAL) 0.6 10^3/uL (0.0-1.0); MYELOCYTES % (MANUAL) 1 %; NEUTROPHILS # (MANUAL) 16.6 10^3/uL (1.5-6.6); PLATELET ESTIMATE, MANUAL INCREASED (>450,000) (NORMAL); RBC MORPHOLOGY (MULTIPLE) NORMAL APPEARANCE (NORMAL); WBC MORPHOLOGY (MULTIPLE) 1+ TOXIC GRANULATION (NORMAL)
--- NOTE | 2022-07-20 09:10 | PROVIDER PROGRESS NOTE ---
Subjective - Prog Note Date Prog Note Date: 07/20/22 Prog Note Time: 09:07 - Subjective Pt reports feeling: No change Subjective: Bridgett is sitting up in her chair this morning but she still looks and feels exhausted. She is slightly hunched forward, she is not in respiratory distress but she still requires 1L of oxygen and tasks like getting up out of her chair to go to the bathroom completely wipe her out and make her short of breath. She feels tired and weak but she is not coughing and has no chest pain or abdominal pain. Current Medications - Current Medications Current Medications: Active Medications Acetaminophen (Acetaminophen 325 Mg Tablet) 650 mg PO Q4HR PRN PRN Reason: Pain 1 to 4, or Fever Last Admin: 07/17/22 01:26 Dose: 650 mg Diphenoxylate HCl/Atropine (Diphenox/Atropine 2.5/0.025 Mg Tablet) 1 tab PO QID PRN PRN Reason: Diarrhea Enoxaparin Sodium (Enoxaparin 40 Mg/0.4 Ml Syringe) 40 mg SUBQ DAILY [facility] Last Admin: 07/19/22 08:54 Dose: 40 mg Ceftriaxone Sodium 1 gm/ (Sodium Chloride) 100 mls @ 200 mls/hr IV DAILY [facility] Stop: 07/21/22 08:59 Last Infusion: 07/19/22 09:42 Dose: Infused Ibuprofen (Ibuprofen 400 Mg Tablet) 400 mg PO Q4HR PRN PRN Reason: Pain 1 to 4 Insulin Glargine-yfgn (Insulin Glargine-Yfgn 300 Unit/3 Ml Pen) 10 unit SUBQ QPM [facility] Last Admin: 07/19/22 21:32 Dose: 10 unit Insulin Human Lispro (Insulin Lispro 300 Unit/3 Ml Pen) 1 - 9 unit SUBQ 0800,1200,1700,2100 [facility]; Protocol Last Admin: 07/19/22 21:32 Dose: 7 unit Lactobacillus Rhamnosus (Lactobacillus Rhamnosus Gg Capsule) 1 cap PO DAILY [facility] Last Admin: 07/19/22 08:54 Dose: 1 cap Ondansetron HCl (Ondansetron Odt 4 Mg Tablet) 4 mg TL Q6HR PRN PRN Reason: Nausea / Vomiting Ondansetron HCl (Ondansetron 4 Mg/2 Ml Vial) 4 mg IVP Q6HR PRN PRN Reason: Nausea / Vomiting Oxycodone HCl (Oxycodone 5 Mg Tablet) 5 mg PO Q4HR PRN PRN Reason: Pain 5 to 7 Potassium Chloride (Potassium Chloride 20 Meq Tablet) 20 meq PO DAILYWM [facility] Last Admin: 07/19/22 08:54 Dose: 20 meq Sodium Chloride (Sodium Chloride Flush 0.9% 10 Ml Syringe) 10 ml IVP PRN PRN PRN Reason: NEEDED PER PROVIDER ORDERS Sodium Chloride (Sodium Chloride Flush 0.9% 10 Ml Syringe) 10 ml IVP 0100,0900,1700 [facility] Last Admin: 07/20/22 00:17 Dose: 10 ml Aspirin [[place] Aspirin] 81 mg PO DAILY 05/06/15 Insulin Glargine,Hum.rec.anlog [Lantus] 20 units SQ DAILY 05/06/15 Insulin Lispro [Humalog] 5 - 10 units SQ QDDINNER 05/06/15 Levothyroxine [Synthroid] 100 mcg PO QDAC 05/06/15 Ergocalciferol [Vitamin D2] 50,000 units PO DAILY 07/15/22 Potassium Citrate [Potassium Citrate ER] 10 meq PO TID 07/15/22 Objective - Vital Signs/Intake & Output Vital Signs: Vital Signs x48h Temp Pulse Resp BP Pulse Ox O2 Flow Rate 07/20/22 07:36 36.6 C 85 16 143/63 H 92 1 Intake & Output: Intake & Output 07/17/22 07/18/22 07/19/22 07/20/22 23:59 23:59 23:59 23:59 Intake Total 2726.334 2530 2080 680 Output Total 1650 800 850 Balance 0573.004 0677 1230 680 - Objective General Appearance: positive: No acute distress Eyes Bilateral: positive: EOMI ENT: positive: No signs of dehydration Neck: positive: No JVD. negative: Lymphadenopathy (R), Lymphadenopathy (L) Respiratory: positive: Chest non-tender, No respiratory distress, Rhonchi Cardiovascular: positive: Regular rate & rhythm Abdomen: positive: Non-tender, Nml bowel sounds, No distention Skin: positive: Warm, Dry, Pallor Extremities: positive: Full ROM, No pedal edema Neurologic/Psychiatric: positive: Oriented x3, CN's nml (2-12) - Lab Results Fish Bones: 07/20/22 04:20 07/20/22 04:20 Other Labs: Lab Results x24hrs 07/20/22 07/20/22 07/20/22 Range/Units 07:35 04:20 04:20 WBC 20.2 H (4.8-10.8) x10^3/uL RBC 4.48 (4.20-5.40) 10^6/uL Hgb 12.7 (12.0-16.0) g/dL Hct 38.3 (37.0-47.0) % MCV 85.5 (81.0-99.0) fL MCH 28.3 (27.0-31.0) pg MCHC 33.2 (32.0-36.0) g/dL RDW 14.1 (12.0-15.0) % Plt Count 612 H (130-450) 10^3/uL MPV 9.2 (7.9-10.8) fL Neut # (Auto) Not Reportable Lymph # (Auto) Not Reportable [place] # (Auto) Not Reportable Eos # (Auto) Not Reportable Baso # (Auto) Not Reportable Absolute Nucleated RBC Not Reportable Total Counted 100 Band Neuts % (Manual) 2 (0 - 10) % Abnorm Lymph % (Manual) 0 % Metamyelocytes % 1 H ( - 0) % Myelocytes % 1 H ( - 0) % Nucleated RBC % Not Reportable Neutrophils # (Manual) 16.6 H (1.5-6.6) 10^3/uL Lymphocytes # (Manual) 2.4 (1.5-3.5) 10^3/uL Monocytes # (Manual) 0.6 (0.0-1.0) 10^3/uL Eosinophils # (Manual) 0.2 (0-0.7) 10^3/uL Basophils # (Manual) 0.0 (0-0.1) 10^3/uL Differential Comment MANUAL DIFFERENTIAL WBC Morphology 1+ TOXIC GRANULATION (NORMAL) Platelet Estimate INCREASED (>450,000) (NORMAL) RBC Morph Micro Appear NORMAL APPEARANCE (NORMAL) Sodium 139 (135-145) mmol/L Potassium 3.4 L (3.5-5.0) mmol/L Chloride 99 L (101-111) mmol/L Carbon Dioxide 33 H (21-32) mmol/L Anion Gap 7.0 (6-13) BUN 8 (6-20) mg/dL Creatinine 0.4 (0.4-1.0) mg/dL Estimated GFR (MDRD) 161 (>89) Glucose 101 H (70-100) mg/dL POC Whole Bld Glucose 110 H (70 - 100) mg/dL Calcium 7.9 L (8.5-10.3) mg/dL 07/19/22 07/19/22 07/19/22 Range/Units 20:20 11:14 07:36 WBC (4.8-10.8) x10^3/uL RBC (4.20-5.40) 10^6/uL Hgb (12.0-16.0) g/dL Hct (37.0-47.0) % MCV (81.0-99.0) fL MCH (27.0-31.0) pg MCHC (32.0-36.0) g/dL RDW (12.0-15.0) % Plt Count (130-450) 10^3/uL MPV (7.9-10.8) fL Neut # (Auto) Lymph # (Auto) [place] # (Auto) Eos # (Auto) Baso # (Auto) Absolute Nucleated RBC Total Counted Band Neuts % (Manual) (0 - 10) % Abnorm Lymph % (Manual) % Metamyelocytes % ( - 0) % Myelocytes % ( - 0) % Nucleated RBC % Neutrophils # (Manual) (1.5-6.6) 10^3/uL Lymphocytes # (Manual) (1.5-3.5) 10^3/uL Monocytes # (Manual) (0.0-1.0) 10^3/uL Eosinophils # (Manual) (0-0.7) 10^3/uL Basophils # (Manual) (0-0.1) 10^3/uL Differential Comment WBC Morphology (NORMAL) Platelet Estimate (NORMAL) RBC Morph Micro Appear (NORMAL) Sodium (135-145) mmol/L Potassium (3.5-5.0) mmol/L Chloride (101-111) mmol/L Carbon Dioxide (21-32) mmol/L Anion Gap (6-13) BUN (6-20) mg/dL Creatinine (0.4-1.0) mg/dL Estimated GFR (MDRD) (>89) Glucose (70-100) mg/dL POC Whole Bld Glucose 287 H 181 H 105 H (70 - 100) mg/dL Calcium (8.5-10.3) mg/dL 07/18/22 07/18/22 07/18/22 Range/Units 20:38 16:42 11:24 WBC (4.8-10.8) x10^3/uL RBC (4.20-5.40) 10^6/uL Hgb (12.0-16.0) g/dL Hct (37.0-47.0) % MCV (81.0-99.0) fL MCH (27.0-31.0) pg MCHC (32.0-36.0) g/dL RDW (12.0-15.0) % Plt Count (130-450) 10^3/uL MPV (7.9-10.8) fL Neut # (Auto) Lymph # (Auto) [place] # (Auto) Eos # (Auto) Baso # (Auto) Absolute Nucleated RBC Total Counted Band Neuts % (Manual) (0 - 10) % Abnorm Lymph % (Manual) % Metamyelocytes % ( - 0) % Myelocytes % ( - 0) % Nucleated RBC % Neutrophils # (Manual) (1.5-6.6) 10^3/uL Lymphocytes # (Manual) (1.5-3.5) 10^3/uL Monocytes # (Manual) (0.0-1.0) 10^3/uL Eosinophils # (Manual) (0-0.7) 10^3/uL Basophils # (Manual) (0-0.1) 10^3/uL Differential Comment WBC Morphology (NORMAL) Platelet Estimate (NORMAL) RBC Morph Micro Appear (NORMAL) Sodium (135-145) mmol/L Potassium (3.5-5.0) mmol/L Chloride (101-111) mmol/L Carbon Dioxide (21-32) mmol/L Anion Gap (6-13) BUN (6-20) mg/dL Creatinine (0.4-1.0) mg/dL Estimated GFR (MDRD) (>89) Glucose (70-100) mg/dL POC Whole Bld Glucose 172 H 235 H 200 H (70 - 100) mg/dL Calcium (8.5-10.3) mg/dL 07/18/22 07/17/22 07/17/22 Range/Units 07:36 20:57 16:40 WBC (4.8-10.8) x10^3/uL RBC (4.20-5.40) 10^6/uL Hgb (12.0-16.0) g/dL Hct (37.0-47.0) % MCV (81.0-99.0) fL MCH (27.0-31.0) pg MCHC (32.0-36.0) g/dL RDW (12.0-15.0) % Plt Count (130-450) 10^3/uL MPV (7.9-10.8) fL Neut # (Auto) Lymph # (Auto) [place] # (Auto) Eos # (Auto) Baso # (Auto) Absolute Nucleated RBC Total Counted Band Neuts % (Manual) (0 - 10) % Abnorm Lymph % (Manual) % Metamyelocytes % ( - 0) % Myelocytes % ( - 0) % Nucleated RBC % Neutrophils # (Manual) (1.5-6.6) 10^3/uL Lymphocytes # (Manual) (1.5-3.5) 10^3/uL Monocytes # (Manual) (0.0-1.0) 10^3/uL Eosinophils # (Manual) (0-0.7) 10^3/uL Basophils # (Manual) (0-0.1) 10^3/uL Differential Comment WBC Morphology (NORMAL) Platelet Estimate (NORMAL) RBC Morph Micro Appear (NORMAL) Sodium (135-145) mmol/L Potassium (3.5-5.0) mmol/L Chloride (101-111) mmol/L Carbon Dioxide (21-32) mmol/L Anion Gap (6-13) BUN (6-20) mg/dL Creatinine (0.4-1.0) mg/dL Estimated GFR (MDRD) (>89) Glucose (70-100) mg/dL POC Whole Bld Glucose 129 H 180 H 191 H (70 - 100) mg/dL Calcium (8.5-10.3) mg/dL 07/17/22 07/17/22 07/16/22 Range/Units 11:26 07:29 20:39 WBC (4.8-10.8) x10^3/uL RBC (4.20-5.40) 10^6/uL Hgb (12.0-16.0) g/dL Hct (37.0-47.0) % MCV (81.0-99.0) fL MCH (27.0-31.0) pg MCHC (32.0-36.0) g/dL RDW (12.0-15.0) % Plt Count (130-450) 10^3/uL MPV (7.9-10.8) fL Neut # (Auto) Lymph # (Auto) [place] # (Auto) Eos # (Auto) Baso # (Auto) Absolute Nucleated RBC Total Counted Band Neuts % (Manual) (0 - 10) % Abnorm Lymph % (Manual) % Metamyelocytes % ( - 0) % Myelocytes % ( - 0) % Nucleated RBC % Neutrophils # (Manual) (1.5-6.6) 10^3/uL Lymphocytes # (Manual) (1.5-3.5) 10^3/uL Monocytes # (Manual) (0.0-1.0) 10^3/uL Eosinophils # (Manual) (0-0.7) 10^3/uL Basophils # (Manual) (0-0.1) 10^3/uL Differential Comment WBC Morphology (NORMAL) Platelet Estimate (NORMAL) RBC Morph Micro Appear (NORMAL) Sodium (135-145) mmol/L Potassium (3.5-5.0) mmol/L Chloride (101-111) mmol/L Carbon Dioxide (21-32) mmol/L Anion Gap (6-13) BUN (6-20) mg/dL Creatinine (0.4-1.0) mg/dL Estimated GFR (MDRD) (>89) Glucose (70-100) mg/dL POC Whole Bld Glucose 205 H 136 H 229 H (70 - 100) mg/dL Calcium (8.5-10.3) mg/dL 07/16/22 07/16/22 07/16/22 Range/Units 16:46 11:27 08:12 WBC (4.8-10.8) x10^3/uL RBC (4.20-5.40) 10^6/uL Hgb (12.0-16.0) g/dL Hct (37.0-47.0) % MCV (81.0-99.0) fL MCH (27.0-31.0) pg MCHC (32.0-36.0) g/dL RDW (12.0-15.0) % Plt Count (130-450) 10^3/uL MPV (7.9-10.8) fL Neut # (Auto) Lymph # (Auto) [place] # (Auto) Eos # (Auto) Baso # (Auto) Absolute Nucleated RBC Total Counted Band Neuts % (Manual) (0 - 10) % Abnorm Lymph % (Manual) % Metamyelocytes % ( - 0) % Myelocytes % ( - 0) % Nucleated RBC % Neutrophils # (Manual) (1.5-6.6) 10^3/uL Lymphocytes # (Manual) (1.5-3.5) 10^3/uL Monocytes # (Manual) (0.0-1.0) 10^3/uL Eosinophils # (Manual) (0-0.7) 10^3/uL Basophils # (Manual) (0-0.1) 10^3/uL Differential Comment WBC Morphology (NORMAL) Platelet Estimate (NORMAL) RBC Morph Micro Appear (NORMAL) Sodium (135-145) mmol/L Potassium (3.5-5.0) mmol/L Chloride (101-111) mmol/L Carbon Dioxide (21-32) mmol/L Anion Gap (6-13) BUN (6-20) mg/dL Creatinine (0.4-1.0) mg/dL Estimated GFR (MDRD) (>89) Glucose (70-100) mg/dL POC Whole Bld Glucose 172 H 175 H 136 H (70 - 100) mg/dL Calcium (8.5-10.3) mg/dL 07/15/22 07/15/22 Range/Units 20:40 17:02 WBC (4.8-10.8) x10^3/uL RBC (4.20-5.40) 10^6/uL Hgb (12.0-16.0) g/dL Hct (37.0-47.0) % MCV (81.0-99.0) fL MCH (27.0-31.0) pg MCHC (32.0-36.0) g/dL RDW (12.0-15.0) % Plt Count (130-450) 10^3/uL MPV (7.9-10.8) fL Neut # (Auto) Lymph # (Auto) [place] # (Auto) Eos # (Auto) Baso # (Auto) Absolute Nucleated RBC Total Counted Band Neuts % (Manual) (0 - 10) % Abnorm Lymph % (Manual) % Metamyelocytes % ( - 0) % Myelocytes % ( - 0) % Nucleated RBC % Neutrophils # (Manual) (1.5-6.6) 10^3/uL Lymphocytes # (Manual) (1.5-3.5) 10^3/uL Monocytes # (Manual) (0.0-1.0) 10^3/uL Eosinophils # (Manual) (0-0.7) 10^3/uL Basophils # (Manual) (0-0.1) 10^3/uL Differential Comment WBC Morphology (NORMAL) Platelet Estimate (NORMAL) RBC Morph Micro Appear (NORMAL) Sodium (135-145) mmol/L Potassium (3.5-5.0) mmol/L Chloride (101-111) mmol/L Carbon Dioxide (21-32) mmol/L Anion Gap (6-13) BUN (6-20) mg/dL Creatinine (0.4-1.0) mg/dL Estimated GFR (MDRD) (>89) Glucose (70-100) mg/dL POC Whole Bld Glucose 167 H 217 H (70 - 100) mg/dL Calcium (8.5-10.3) mg/dL Sepsis Event Note (H) - Evaluation Current Stage of Sepsis: Sepsis Possible source of Sepsis: positive: Pulmonary - Sepsis Criteria Sepsis Criteria: Recorded Heart Rate greater than 90 bpm, Recorded Respiratory Rate greater than 20, Respiratory: Increasing oxygen requirements, WBC count greater than 10% bands, WBC count greater than 12,000 or less than 4000 Assessment/Plan - Problem List (1) Sepsis Impression: Bridgett met sepsis criteria on admission with tachycardia, respiratory rate, hypoxia and elevated white cell count. Her CXR showed diffuse inflammatory changes and her viral panel was positive for Influenza A, pneumonia and possibly a secondary bacterial pneumonia. She received 3 days of Azithromycin and is still on Ceftriaxone 1g IV. Her tachycardia resolved on 07/17 and has been stable between 80-90 since then. Her respiratory rate has not risen over 22 since admission however she is still hypoxic and requiring 1L of O2 and her white cell count is still elevated at 20.2. Her sputum cultures resulted on 07/18 for staph aureus which should be covered by the Ceftriaxone she's been taking since 07/16. After consulting with the pharmacist on her medication regimen, we have decided to give the last dose of IV ceftriaxone today and switch to oral augmentin tomorrow for 2-3 more days depending on how she is improving. At this time i'm monitoring her WBC count and hypoxia. I have been told by re spiratory therapy that pneumonia and hypoxia is not a sufficient diagnosis for home oxygen, so she will need to stay here until her oxygen saturation is at least 90% on room air. Plan - continue oxygen - Continue IV ceftriaxone, tomorow start PO augmentin - monitor CBC daily (2) Pneumonia Impression: Bridgett has had serial CXR since her admission. 07/15 she had diffuse infectious or inflammatory lung disease. 07/15: diffuse patchy bilateral airspace opacities consistent with pneumonia, increased compared to prior XR 07/18: similar extent of multifocal bilateral mixed interstitial and alveolar opacities compared to the prior study. Probably development of small bilateral effusions. I ordered the third CXR to evaluate for evidence of interstitial fibrosis as a cause for her extreme SOB along with diffuse coarse breath sounds, but the imaging does not support this. She will continue to be treated with antibiotics but after speaking with the pharmacist we have decided to discontinue her IV ceftriaxone and start Augmentin PO for 2-3 more days. Plan - finish today's IV ceftriaxone dose - tomorrow start PO augmentin. - continue O2 supplement until she is at least 90% on room air. Qualifiers: Pneumonia type: due to unspecified organism Laterality: bilateral Lung location: unspecified part of lung Qualified Code(s): J18.9 - Pneumonia, unspecified organism (3) Influenza A Impression: Her viral panel was positive for influenza A on 07/15. We started her on empiric antibiotics as her CXR showed evidence of pneumonia and possibly a secondary bacterial pneumonia based on her physical exam and sepsis criteria. She has been managed with fluids, tylenol as needed and ceftriaxone. plan - continue fluids, tylenol and ceftriaxone (4) Hypoxia Impression: Bridgett has been hypoxic since admission. In the ED she was at 88% on room air on 07/15. Since them she has been stable on 1L of oxygen at 90-92%. She is still getting extremely fatigued with any exertion and short of breath. She will need to remain on 1L until she can get to at least 90% on room air with exertion. I am considering ordering an Echo for her, to rule out any cardiac cause of her extreme shortness of breath however there is not an technical specialist here over the weekend. If she becomes well enough to leave before an cotton program technician is available I will not delay her discharge for this imaging but she can get an outpatient evaluation.
[2022-07-20] MEDS: INSULIN LISPRO 300 UNIT/3 ML PEN SUBQ SCH ×4 (10:12→21:00)
[2022-07-20] MEDS: POTASSIUM CHLORIDE 20 MEQ TABLET PO SCH (10:18)
[2022-07-20] MEDS: LACTOBACILLUS RHAMNOSUS GG CAPSULE PO SCH (10:19)
[2022-07-20] MEDS: ENOXAPARIN 40 MG/0.4 ML SYRINGE SUBQ SCH (10:19)
[2022-07-20] MEDS: cefTRIAXone 1 GM in SODIUM CHLORIDE 0.9% MINIBAG 100 ML IV SCH (10:20)
[2022-07-20] MEDS: AMOX/CLAV 875 MG/125 MG TABLET PO SCH (20:59)
[2022-07-20] MEDS: INSULIN GLARGINE-YFGN 300 UNIT/3 ML PEN SUBQ SCH (21:01)
[2022-07-21] MEDS: SODIUM CHLORIDE FLUSH 0.9% 10 ML SYRINGE IVP SCH ×3 (00:27→17:19)
[2022-07-21 05:48] LABS: CALCIUM 8.2 mg/dL (8.5-10.3); CREATININE 0.4 mg/dL (0.4-1.0); CRP - C-REACTIVE PROTEIN 4.7 mg/dL (0-1.0); POTASSIUM 3.7 mmol/L (3.5-5.0)
[2022-07-21] MEDS: INSULIN LISPRO 300 UNIT/3 ML PEN SUBQ SCH ×4 (08:10→21:45)
[2022-07-21] MEDS: POTASSIUM CHLORIDE 20 MEQ TABLET PO SCH (08:11)
[2022-07-21] MEDS: LACTOBACILLUS RHAMNOSUS GG CAPSULE PO SCH (08:11)
[2022-07-21] MEDS: ENOXAPARIN 40 MG/0.4 ML SYRINGE SUBQ SCH (08:11)
[2022-07-21] MEDS: AMOX/CLAV 875 MG/125 MG TABLET PO SCH ×2 (08:11→21:44)
[2022-07-21 11:19] LABS: BASOPHILS # (AUTO) 0.1 10^3/uL (0.0-0.1); BASOPHILS % (AUTO) 0.5 %; EOSINOPHILS # (AUTO) 0.2 10^3/uL (0.0-0.7); EOSINOPHILS % (AUTO) 1.1 %; HCT - HEMATOCRIT 42.6 % (37.0-47.0); LYMPHOCYTES # (AUTO) 2.5 10^3/uL (1.5-3.5); LYMPHOCYTES % (AUTO) 13.3 %; MEAN CORPUSCULAR HEMOGLOBIN 27.1 pg (27.0-31.0); MEAN CORPUSCULAR HGB CONC 30.5 g/dL (32.0-36.0); MEAN CORPUSCULAR VOLUME 88.8 fL (81.0-99.0); MEAN PLATELET VOLUME 9.3 fL (7.9-10.8); MONOCYTES # (AUTO) 0.6 10^3/uL (0.0-1.0); MONOCYTES % (AUTO) 3.3 %; NEUTROPHILS # (AUTO) 14.5 10^3/uL (1.5-6.6); NEUTROPHILS % (AUTO) 79.1 %; PLT - PLATELET COUNT 748 10^3/uL (130-450); RED CELL DISTRIBUTION WIDTH 14.2 % (12.0-15.0); WHITE BLOOD COUNT 18.4 x10^3/uL (4.8-10.8)
--- NOTE | 2022-07-21 11:59 | PROVIDER PROGRESS NOTE ---
Subjective - Prog Note Date Prog Note Date: 07/21/22 Prog Note Time: 11:57 - Subjective Pt reports feeling: Improved Subjective: Bridgett is looking better today, she feels like she has more energy and she was able to decrease her Oxygen to 0.5L. She is sitting up straighter in her chair and feeling less short of breath. Current Medications - Current Medications Current Medications: Active Medications Acetaminophen (Acetaminophen 325 Mg Tablet) 650 mg PO Q4HR PRN PRN Reason: Pain 1 to 4, or Fever Last Admin: 07/17/22 01:26 Dose: 650 mg Amoxicillin/Clavulanate Potassium (Amox/Clav 875 Mg/125 Mg Tablet) 1 tab PO BID [facility] Last Admin: 07/21/22 08:11 Dose: 1 tab Diphenoxylate HCl/Atropine (Diphenox/Atropine 2.5/0.025 Mg Tablet) 1 tab PO QID PRN PRN Reason: Diarrhea Enoxaparin Sodium (Enoxaparin 40 Mg/0.4 Ml Syringe) 40 mg SUBQ DAILY [facility] Last Admin: 07/21/22 08:11 Dose: 40 mg Ibuprofen (Ibuprofen 400 Mg Tablet) 400 mg PO Q4HR PRN PRN Reason: Pain 1 to 4 Insulin Glargine-yfgn (Insulin Glargine-Yfgn 300 Unit/3 Ml Pen) 16 unit SUBQ QPM [facility] Last Admin: 07/20/22 21:01 Dose: 16 unit Insulin Human Lispro (Insulin Lispro 300 Unit/3 Ml Pen) 1 - 9 unit SUBQ 0800,1200,1700,2100 [facility]; Protocol Last Admin: 07/21/22 08:10 Dose: Not Given Lactobacillus Rhamnosus (Lactobacillus Rhamnosus Gg Capsule) 1 cap PO DAILY [facility] Last Admin: 07/21/22 08:11 Dose: 1 cap Ondansetron HCl (Ondansetron Odt 4 Mg Tablet) 4 mg TL Q6HR PRN PRN Reason: Nausea / Vomiting Oxycodone HCl (Oxycodone 5 Mg Tablet) 5 mg PO Q4HR PRN PRN Reason: Pain 5 to 7 Potassium Chloride (Potassium Chloride 20 Meq Tablet) 20 meq PO DAILYWM [facility] Last Admin: 07/21/22 08:11 Dose: 20 meq Sodium Chloride (Sodium Chloride Flush 0.9% 10 Ml Syringe) 10 ml IVP PRN PRN PRN Reason: NEEDED PER PROVIDER ORDERS Sodium Chloride (Sodium Chloride Flush 0.9% 10 Ml Syringe) 10 ml IVP 0100,0900,1700 [facility] Last Admin: 07/21/22 08:11 Dose: 10 ml Aspirin [[place] Aspirin] 81 mg PO DAILY 05/06/15 Insulin Glargine,Hum.rec.anlog [Lantus] 20 units SQ DAILY 05/06/15 Insulin Lispro [Humalog] 5 - 10 units SQ QDDINNER 05/06/15 Levothyroxine [Synthroid] 100 mcg PO QDAC 05/06/15 Ergocalciferol [Vitamin D2] 50,000 units PO DAILY 07/15/22 Potassium Citrate [Potassium Citrate ER] 10 meq PO TID 07/15/22 Objective - Vital Signs/Intake & Output Vital Signs: Vital Signs x48h Temp Pulse Resp BP Pulse Ox O2 Flow Rate 07/21/22 07:31 36.6 C 89 18 133/61 H 96 0.5 Intake & Output: Intake & Output 07/18/22 07/19/22 07/20/22 07/21/22 23:59 23:59 23:59 23:59 Intake Total 2530 2080 2280 730 Output Total 800 850 Balance 1730 1230 2280 730 - Lab Results Fish Bones: 07/21/22 04:52 07/21/22 04:52 Other Labs: Lab Results x24hrs 07/21/22 07/21/22 07/21/22 Range/Units 11:38 07:31 04:52 WBC 18.4 H (4.8-10.8) x10^3/uL RBC 4.80 (4.20-5.40) 10^6/uL Hgb 13.0 (12.0-16.0) g/dL Hct 42.6 (37.0-47.0) % MCV 88.8 (81.0-99.0) fL MCH 27.1 (27.0-31.0) pg MCHC 30.5 L (32.0-36.0) g/dL RDW 14.2 (12.0-15.0) % Plt Count 748 H (130-450) 10^3/uL MPV 9.3 (7.9-10.8) fL Neut # (Auto) 14.5 H (1.5-6.6) 10^3/uL Lymph # (Auto) 2.5 (1.5-3.5) 10^3/uL [place] # (Auto) 0.6 (0.0-1.0) 10^3/uL Eos # (Auto) 0.2 (0.0-0.7) 10^3/uL Baso # (Auto) 0.1 (0.0-0.1) 10^3/uL Absolute Nucleated RBC 0.00 x10^3/uL Nucleated RBC % 0.0 /100WBC Sodium (135-145) mmol/L Potassium (3.5-5.0) mmol/L Chloride (101-111) mmol/L Carbon Dioxide (21-32) mmol/L Anion Gap (6-13) BUN (6-20) mg/dL Creatinine (0.4-1.0) mg/dL Estimated GFR (MDRD) (>89) Glucose (70-100) mg/dL POC Whole Bld Glucose 166 H 112 H (70 - 100) mg/dL Calcium (8.5-10.3) mg/dL C-Reactive Protein (0-1.0) mg/dL Procalcitonin (<0.5) ng/mL 07/21/22 07/21/22 07/20/22 Range/Units 04:52 04:52 20:54 WBC (4.8-10.8) x10^3/uL RBC (4.20-5.40) 10^6/uL Hgb (12.0-16.0) g/dL Hct (37.0-47.0) % MCV (81.0-99.0) fL MCH (27.0-31.0) pg MCHC (32.0-36.0) g/dL RDW (12.0-15.0) % Plt Count (130-450) 10^3/uL MPV (7.9-10.8) fL Neut # (Auto) (1.5-6.6) 10^3/uL Lymph # (Auto) (1.5-3.5) 10^3/uL [place] # (Auto) (0.0-1.0) 10^3/uL Eos # (Auto) (0.0-0.7) 10^3/uL Baso # (Auto) (0.0-0.1) 10^3/uL Absolute Nucleated RBC x10^3/uL Nucleated RBC % /100WBC Sodium 141 (135-145) mmol/L Potassium 3.7 (3.5-5.0) mmol/L Chloride 101 (101-111) mmol/L Carbon Dioxide 30 (21-32) mmol/L Anion Gap 10.0 (6-13) BUN 10 (6-20) mg/dL Creatinine 0.4 (0.4-1.0) mg/dL Estimated GFR (MDRD) 161 (>89) Glucose 104 H (70-100) mg/dL POC Whole Bld Glucose 207 H (70 - 100) mg/dL Calcium 8.2 L (8.5-10.3) mg/dL C-Reactive Protein 4.7 H (0-1.0) mg/dL Procalcitonin 0.25 (<0.5) ng/mL 07/20/22 Range/Units 16:24 WBC (4.8-10.8) x10^3/uL RBC (4.20-5.40) 10^6/uL Hgb (12.0-16.0) g/dL Hct (37.0-47.0) % MCV (81.0-99.0) fL MCH (27.0-31.0) pg MCHC (32.0-36.0) g/dL RDW (12.0-15.0) % Plt Count (130-450) 10^3/uL MPV (7.9-10.8) fL Neut # (Auto) (1.5-6.6) 10^3/uL Lymph # (Auto) (1.5-3.5) 10^3/uL [place] # (Auto) (0.0-1.0) 10^3/uL Eos # (Auto) (0.0-0.7) 10^3/uL Baso # (Auto) (0.0-0.1) 10^3/uL Absolute Nucleated RBC x10^3/uL Nucleated RBC % /100WBC Sodium (135-145) mmol/L Potassium (3.5-5.0) mmol/L Chloride (101-111) mmol/L Carbon Dioxide (21-32) mmol/L Anion Gap (6-13) BUN (6-20) mg/dL Creatinine (0.4-1.0) mg/dL Estimated GFR (MDRD) (>89) Glucose (70-100) mg/dL POC Whole Bld Glucose 266 H (70 - 100) mg/dL Calcium (8.5-10.3) mg/dL C-Reactive Protein (0-1.0) mg/dL Procalcitonin (<0.5) ng/mL Sepsis Event Note (H) - Evaluation Current Stage of Sepsis: Resolved Possible source of Sepsis: positive: Pulmonary - Sepsis Criteria Sepsis Criteria: Recorded Heart Rate greater than 90 bpm, Recorded Respiratory Rate greater than 20, Respiratory: Increasing oxygen requirements, WBC count greater than 10% bands, WBC count greater than 12,000 or less than 4000 Assessment/Plan - Problem List (1) Sepsis Impression: Bridgett met sepsis criteria on admission with tachycardia, respiratory rate, h ypoxia and elevated white cell count. Her CXR showed diffuse inflammatory changes and her viral panel was positive for Influenza A, pneumonia and possibly a secondary bacterial pneumonia. She received 3 days of Azithromycin and Ceftriaxone 1g IV from 07/16 - 07/21. Her tachycardia resolved on 07/17 and has been stable between 80-90 since then. Her respiratory rate has not risen over 22 since admission however she is still hypoxic and requiring 1L of O2 and her white cell count is still elevated at 20.2. Her sputum cultures resulted on 07/18 for staph aureus which should be covered by the Ceftriaxone she's been taking since 07/16. She will start oral augmentin today for 3 more days. Her white cell count is coming down. 07/20, 20.2 07/21, 18.4 At this time i'm monitoring her WBC count and hypoxia. I have been told by respiratory therapy that pneumonia and hypoxia is not a sufficient diagnosis for home oxygen, so she will need to stay here until her oxygen saturation is at least 90% on room air. She reduced from 1L to 0.5L. I would like respiratory therapy to do an ambulatory evaluation on her with room air. Plan - continue oxygen prn - RT to assess her on room air - Start PO augmentin - monitor CBC daily (2) Pneumonia Impression: Bridgett has had serial CXR since her admission. 07/15 she had diffuse infectious or inflammatory lung disease. 07/15: diffuse patchy bilateral airspace opacities consistent with pneumonia, increased compared to prior XR 07/18: similar extent of multifocal bilateral mixed interstitial and alveolar opacities compared to the prior study. Probably development of small bilateral effusions. Plan - see above. Qualifiers: Pneumonia type: due to unspecified organism Laterality: bilateral Lung location: unspecified part of lung Qualified Code(s): J18.9 - Pneumonia, unspecified organism (3) Influenza A Impression: Her viral panel was positive for influenza A on 07/15. We started her on empiric antibiotics as her CXR showed evidence of pneumonia and possibly a secondary bacterial pneumonia based on her physical exam and sepsis criteria. She has been managed with fluids, tylenol as needed and ceftriaxone. plan - continue fluids, tylenol and augmentin (4) Hypoxia Impression: Bridgett has been hypoxic since admission. In the ED she was at 88% on room air on 07/15. Since them she has been stable on 1L of oxygen at 90-92%. She is still getting extremely fatigued with any exertion and short of breath. She will need to remain on 1L until she can get to at least 90% on room air with exertion. I am considering ordering an Echo for her, to rule out any cardiac cause of her extreme shortness of breath however there is not an template reproduction technician here over the weekend. If she becomes well enough to leave before an test cell technician is available I will not delay her discharge for this imaging but she can get an outpatient e valuation. Today she was able to reduce down to 0.5L at 93-96%
[2022-07-21] MEDS: INSULIN GLARGINE-YFGN 300 UNIT/3 ML PEN SUBQ SCH (21:44)
[2022-07-22] MEDS: SODIUM CHLORIDE FLUSH 0.9% 10 ML SYRINGE IVP SCH ×2 (01:20→08:25)
[2022-07-22 07:09] LABS: BASOPHILS # (AUTO) 0.1 10^3/uL (0.0-0.1); BASOPHILS % (AUTO) 0.4 %; EOSINOPHILS # (AUTO) 0.2 10^3/uL (0.0-0.7); EOSINOPHILS % (AUTO) 1.2 %; HGB - HEMOGLOBIN 13.9 g/dL (12.0-16.0); LYMPHOCYTES # (AUTO) 2.6 10^3/uL (1.5-3.5); LYMPHOCYTES % (AUTO) 16.3 %; MEAN CORPUSCULAR HEMOGLOBIN 28.4 pg (27.0-31.0); MEAN CORPUSCULAR HGB CONC 32.3 g/dL (32.0-36.0); MEAN CORPUSCULAR VOLUME 87.8 fL (81.0-99.0); MEAN PLATELET VOLUME 8.7 fL (7.9-10.8); MONOCYTES # (AUTO) 0.6 10^3/uL (0.0-1.0); MONOCYTES % (AUTO) 3.8 %; NEUTROPHILS # (AUTO) 12.4 10^3/uL (1.5-6.6); NEUTROPHILS % (AUTO) 77.1 %; PLT - PLATELET COUNT 756 10^3/uL (130-450); RED CELL DISTRIBUTION WIDTH 14.3 % (12.0-15.0)
[2022-07-22 07:31] LABS: CALCIUM 8.5 mg/dL (8.5-10.3); CREATININE 0.4 mg/dL (0.4-1.0); CRP - C-REACTIVE PROTEIN 2.6 mg/dL (0-1.0); POTASSIUM 4.3 mmol/L (3.5-5.0)
[2022-07-22] MEDS: INSULIN LISPRO 300 UNIT/3 ML PEN SUBQ SCH ×2 (07:45→12:11)
[2022-07-22] MEDS: POTASSIUM CHLORIDE 20 MEQ TABLET PO SCH (08:23)
[2022-07-22] MEDS: LACTOBACILLUS RHAMNOSUS GG CAPSULE PO SCH (08:23)
[2022-07-22] MEDS: ENOXAPARIN 40 MG/0.4 ML SYRINGE SUBQ SCH (08:23)
[2022-07-22] MEDS: AMOX/CLAV 875 MG/125 MG TABLET PO SCH (08:23)
--- NOTE | 2022-07-22 08:43 | Discharge Plan ---
Discharge Plan Problem Reviewed?: Yes Disposition: 01 Home, Self Care Condition: Stable Diet: Diabetic Activity Restrictions: Activity as Tolerated Shower Restrictions: No Driving Restrictions: No Health Concerns: You have no previous history of underlying lung disease and you presented to the walk-in clinic with cough, weakness, shortness of breath and diarrhea since the week before. You had been to [facility] and got sick the day you left. When you came to the walk-in clinic you had a very low oxygen so they sent you to the emergency room and we found you to have pneumonia, and influenza A. You are not a candidate for the treatment for influenza and since you were 3 days beyond when you should have started therapy. You had a very low oxygen, and had very labored breathing. We admitted you and started you on steroids, nebulizers, oxygen, and antibiotics in case you had a bacterial pneumonia. Your white cell count was 28,000 when you came in and was 30,000 the next day. Elevation of white cell count is a reflection without seriously ill the patient is. Normal white cell count is 10,000. On the day of discharge you are still 16,000. We kept you until your oxygen level was normal. It took a very long time. You now have borderline normal room air oxygen and can go home. Plan of Treatment: 1. This will take you quite a bit of time to get over. So you are still going to be weak, coughing, wheezing a little bit. You will be exhausted. Just be good to yourself. You can get up and do what ever you want but if you start getting short of breath stop and rest. 2. Please see your primary care provider in follow-up. Would like them to check your CBC to make sure your white cell count continues to come down. And check a BMP to make sure your potassium is staying normal. We would also like her to repeat your chest x-ray in 2 to 3 weeks to make sure that your pneumonia is getting better. 3. Some people develop diarrhea with the antibiotics given in the hospital, and you were on a probiotic while here. If you are still having loose stools, please take a probiotic until your stools are normal. The probiotic should be once a day. It is [id number]. 4. If you have not done so, please make sure that your vaccines are up-to-date with regards to flu, strep pneumonia, and COVID. Do not get those in the next 1 to 2 weeks because your immune system is still working hard to recover. But start getting those by late July early August. Care Goals: At this time you just want to get through this acute episode of severe pneumonia from the flu. Gradually regaining your strength to get back to work. Assessment: Patient is alert, oriented, lucid sentence structure, and not requesting anything at discharge for home No Smoking: If you smoke, Please STOP! Call for help. Follow-up with: Shaina Castellano PA-C [Primary Care Provider] -
--- NOTE | 2022-07-22 10:38 | DISCHARGE SUMMARY ---
"Discharge Summary Admit Date: 07/15/22 Discharge Date: 07/22/22 Discharging Provider: Meggan Ellis MD Primary Care Provider: Shaina Castellano Code Status: Attempt Resuscitation Condition at Discharge: Stable Discharge Disposition: 01 Home, Self Care - DIAGNOSES Discharge Diagnoses with Status of Each Condition: 1. Sepsis 2. Influenza A pneumonia 3. Hypoxia 4. Type 1 diabetes mellitus, controlled, on long-term insulin 5. Diarrhea resolved 6. Hypokalemia resolved 7. Hypothyroidism - HPI History of Present Illness: Bridgett presented to the emergency department today with increasing dyspnea, weakness, fatigue, diarrhea and productive cough. She was transported there by EMS when she was seen at the walk in clinic and had a oxygen saturation of 85% on room air. She started to feel sick last Friday while she was on vacation in [place] with some friends who had young children who were also sick. She has not measured a fever at home but she does complain of chills, fatigue, weakness. She denies chest pain, syncope, nausea, vomiting, abdominal pain, vision changes, headaches. She has a medical history significant for hypothyroidism, type 1 DM, kidney stones. She lives in her own home with her of 37 years and an adult daughter. She denies underlying lung or heart disease and is not a smoker. In the ED her HR went from low at 50bpm at 11:41 to 101bpm at 13:53. Blood pressure is steady in the 140/60s. Her oxygen saturation was 88 on room air when she presented and is now at 95 on 1L of oxygen via nasal cannula. Her WBC count is elevated, she has 27% banded neutrophils and 11.5 armando trophilia. Her BUN is elevated, her GFR today is 85, previously this year it has been >100. She reports that her average A1C is 5.5. Her viral panel was positive for influenza A. Chest Xray showed a moderate diffuse infectious or inflammatory lung disease with low lung volumes. 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 3 Births were via section) : reports: Kidney stones (She was scheduled to see on July 25 for kidney stones, she has never had them before.) HEENT: reports: Chronic vision loss, Chronic hearing loss (She is hard of hearing, she does not wear hearing aids. ) Psych: reports: None, Depression, Anxiety Musculoskeletal: reports: None Derm: reports: None - CONSULTS | PROCEDURES Procedures: 3 separate x-rays were done for this bacilio patient. She had multifocal patchy opacities mixed with interstitial and alveolar changes. Right worse than left. Obscuration of the right diaphragm and blunting of both lateral costophrenic angles. Respiratory culture on July 18 had mixed oropharyngeal peter present as well as MSSA - HOSPITAL COURSE Hospital Course: The patient met sepsis criteria on admission with tachycardia, respiratory rate, hypoxemia and elevated white cell count. Chest x-ray was as above with diffuse changes that were bilateral. She was influenza A positive and felt to have influenza pneumonia. However we were worried about a possible secondary bacterial pneumonia and she received empiric antibiotic therapy with 3 days of azithromycin and 5 days of ceftriaxone. She received 2 to 3 days of oral Augmentin to complete a total of 7 to 8 days. Tachycardia gradually resolved, hypoxemia took quite some time to resolve. She stated 1 L for several days and finally on the day of discharge was room air. An oxygen desaturation stress with ambulation was performed. She remained above 90% on room air without. She is still significantly weakened, fatigued, and just exhausted with minimal activity. We will take her several weeks to recover. She has type 1 diabetes mellitus. A1c was 6.8%. During her stay we managed her with Lantus and short acting insulin and she did well. Her TSH was not checked and she was given her normal home dose of Synthroid. She has hypokalemia in the outpatient setting and is managed with potassium citrate. Here she required several potassium riders IV due to diarrhea which was C. difficile negative. At the time of discharge potassium was 4.3. She is discharged in stable condition. Temperature is 36.8. At rest heart rate was 81. With walking she went up to 112. Blood pressure is 153/99. Respirations 21. 93% on room air. She is a thin female at 5 foot 7 inches tall weighing 77 kg. Affect is muted. Neck is supple with shotty adenopathy. Lungs have coarse upper airway sounds with prolonged and exhalation but no outright wheezing. A regular rate and rhythm. And abdomen is soft, nontender. Normal bowel sounds. Extremities without edema. No ataxia, alert and oriented and able to do toileting needs and feeding needs without assist. Greater than 30 minutes was spent corning discharge - ALLERGIES Allergies/Adverse Reactions: Allergies Allergy/AdvReac Type Severity Reaction Status Date / Time No Known Drug Allergies Allergy Verified 05/06/15 10:24 - MEDICATIONS Home Medications: Ambulatory Orders Medication Instructions Recorded Confirmed Aspirin [[place] Aspirin] 81 mg PO DAILY 05/06/15 07/16/22 Insulin Glargine,Hum.rec.anlog 20 units SQ DAILY 05/06/15 07/16/22 [Lantus] Insulin Lispro [Humalog] 5 - 10 units SQ QDDINNER 05/06/15 07/16/22 Levothyroxine [Synthroid] 100 mcg PO QDAC 05/06/15 07/16/22 Ergocalciferol [Vitamin D2] 50,000 units PO DAILY 07/15/22 07/16/22 Potassium Citrate [Potassium 10 meq PO TID 07/15/22 07/16/22 Citrate ER] - LABS Result Diagrams: 07/22/22 06:35 07/22/22 06:35 - SEPSIS Current Stage of Sepsis: Resolved Possible source of Sepsis: Pulmonary Sepsis Criteria: Recorded Heart Rate greater than 90 bpm, Recorded Respiratory Rate greater than 20, Respiratory: Increasing oxygen requirements, WBC count greater than 10% bands, WBC count greater than 12,000 or less than 4000"
[2022-07-22 11:18] VITALS: BP 134/65
== END 2022-07-22 11:40 | disposition home or self-care (01) | DRG 871 ==
LOC: EDUNIT# → ED 11:32 → MS2 14:18 → UNDODISIN 07-19 15:50
PROVIDERS: ADMIT Specialist; ATTEND Specialist
DX: A41.9 Sepsis, unspecified organism (principal); J10.01 Influenza due to other identified influenza virus with the same other identified influenza virus pneumonia; E10.9 Type 1 diabetes mellitus without complications; E87.6 Hypokalemia; E03.9 Hypothyroidism, unspecified; H91.90 Unspecified hearing loss, unspecified ear; H54.7 Unspecified visual loss; R09.02 Hypoxemia; R19.7 Diarrhea, unspecified; Z20.822 Contact with and (suspected) exposure to COVID-19; Z79.4 Long term (current) use of insulin; Z79.82 Long term (current) use of aspirin; Z79.890 Hormone replacement therapy; Z79.899 Other long term (current) drug therapy; Z80.9 Family history of malignant neoplasm, unspecified; Z82.0 Family history of epilepsy and other diseases of the nervous system; Z82.5 Family history of asthma and other chronic lower respiratory diseases
CPT/HCPCS: 36415; 71045; 71046; 80048; 80053; 81001; 83036; 83605; 83690; 84145; 85025; 86140; 87070; 87086; 87181; 87205; 87493; 87633; 94761; 96365; 96368; 99284; 99285; A9270; J1650; J1815; 81003

== ENCOUNTER 2022-07-26 14:34 | Outpatient (CLI) | payer OTHER ==
[2022-07-26 15:00] LABS: BASOPHILS # (AUTO) 0.1 10^3/uL (0.0-0.1); BASOPHILS % (AUTO) 0.7 %; EOSINOPHILS # (AUTO) 0.1 10^3/uL (0.0-0.7); EOSINOPHILS % (AUTO) 0.4 %; HCT - HEMATOCRIT 42.7 % (37.0-47.0); HGB - HEMOGLOBIN 13.6 g/dL (12.0-16.0); LYMPHOCYTES # (AUTO) 3.1 10^3/uL (1.5-3.5); LYMPHOCYTES % (AUTO) 18.2 %; MEAN CORPUSCULAR HEMOGLOBIN 28.3 pg (27.0-31.0); MEAN CORPUSCULAR HGB CONC 31.9 g/dL (32.0-36.0); MEAN CORPUSCULAR VOLUME 88.8 fL (81.0-99.0); MEAN PLATELET VOLUME 8.9 fL (7.9-10.8); MONOCYTES # (AUTO) 0.8 10^3/uL (0.0-1.0); NEUTROPHILS # (AUTO) 12.7 10^3/uL (1.5-6.6); NEUTROPHILS % (AUTO) 75.2 %; PLT - PLATELET COUNT 789 10^3/uL (130-450); RED BLOOD COUNT 4.81 10^6/uL (4.20-5.40); RED CELL DISTRIBUTION WIDTH 14.7 % (12.0-15.0); WHITE BLOOD COUNT 16.9 x10^3/uL (4.8-10.8)
[2022-07-26 15:12] LABS: ALBUMIN 3.2 g/dL (3.2-5.5); ALBUMIN/GLOBULIN RATIO 0.8 (1.0-2.2); ALKALINE PHOSPHATASE 67 IU/L (42-121); ALT ALANINE AMINOTRANSFERASE 22 IU/L (10-60); AST ASPARTATE AMINOTRANSFERASE 25 IU/L (10-42); BILIRUBIN,TOTAL 0.7 mg/dL (0.2-1.0); BUN - BLOOD UREA NITROGEN 25 mg/dL (6-20); CALCIUM 9.4 mg/dL (8.5-10.3); CARBON DIOXIDE - CO2 29 mmol/L (21-32); CHLORIDE 99 mmol/L (101-111); CHOL/HDL RATIO 2.9 (<4.4); CHOLESTEROL 134 mg/dL; CREATININE 0.5 mg/dL (0.4-1.0); GFR - MDRD 125 (>89); GLUCOSE 168 mg/dL (70-100); HDL CHOLESTEROL 46 mg/dL; LDL CHOLESTEROL,CALCULATED 43 mg/dL; LDL/HDL RATIO 0.9 (<4.4); POTASSIUM 4.5 mmol/L (3.5-5.0); SODIUM 137 mmol/L (135-145); TOTAL PROTEIN 7.2 g/dL (6.7-8.2); TRIGLYCERIDES 225 mg/dL; VLDL CHOLESTEROL 45 mg/dL
[2022-07-26 15:22] LABS: THYROID STIMULATING HORMONE 2.29 uIU/mL (0.34-5.60)
[2022-07-26 15:24] LABS: FREE T4 (FREE THYROXINE) 1.54 ng/dL (0.58-1.64)
[2022-07-26 15:44] LABS: CREATININE,URINE 47.2 mg/dL; MICROALBUM/CREATININE RATIO,UR 12.7 ug/mg (<30.0); MICROALBUMIN,URINE 0.6 mg/dL (0-300.0)
[2022-07-26 20:54] LABS: ESTIMATED AVERAGE GLUCOSE 157 mg/dL (70-100); HEMOGLOBIN A1c% 7.1 % (4.27-6.07)
== END 2022-07-26 14:35 | disposition home or self-care (01) ==
LOC: LAB 14:34
PROVIDERS: ATTEND Physician Assistant
DX: E10.9 Type 1 diabetes mellitus without complications (principal); E03.9 Hypothyroidism, unspecified
CPT/HCPCS: 36415; 80053; 80061; 82043; 82570; 83036; 83721; 84439; 84443; 85025

== ENCOUNTER 2022-07-30 14:37 | Outpatient (CLI) | payer OTHER ==
[2022-07-30 14:47] LABS: BILIRUBIN,URINE NEGATIVE (NEGATIVE); GLUCOSE, URINE (UA) NEGATIVE (NEGATIVE); KETONES,URINE (UA) NEGATIVE (NEGATIVE); LEUKOCYTE ESTERASE, URINE TRACE (NEGATIVE); NITRITE,URINE NEGATIVE (NEGATIVE); OCCULT BLOOD,URINE MODERATE (NEGATIVE); PROTEIN,URINE NEGATIVE (NEGATIVE); UROBILINOGEN,URINE 0.2 (NORMAL) E.U./dL (NORMAL)
[2022-07-30 15:00] LABS: CLARITY,URINE CLEAR (CLEAR)
[2022-07-30 15:01] LABS: BACTERIA,URINE Rare /HPF (None Seen); SQUAMOUS EPITHELIAL CELL,UR RARE Squamous (<= Few); WBC,URINE 0-3 /HPF (0-5)
== END 2022-07-30 14:38 | disposition home or self-care (01) ==
LOC: LAB 14:37
DX: N20.0 Calculus of kidney (principal)
CPT/HCPCS: 81001; 87086

== ENCOUNTER 2022-09-23 10:21 | Outpatient (CLI) | payer OTHER ==
--- NOTE | 2022-09-24 11:41 | Mammography Report ---
BILATERAL DIGITAL SCREENING MAMMOGRAM 3D/2D WITH EXAGGERATED CC: 09/23/2022 CLINICAL: Routine screening. Comparison is made to exams dated: 08/08/2021 mammogram, 07/12/2020 mammogram, 03/19/2019 mammogram, 08/05/2016 mammogram, 05/18/2014 mammogram, and 06/20/2015 mammogram - [facility]. There are scattered areas of fibroglandular density in both breasts (category b / 25%-50% glandular t issue). There is a stable benign focal asymmetry in the right breast. No significant masses, calcifications, or other findings are seen in either breast. There has been no significant interval change. IMPRESSION: BENIGN There is no mammographic evidence of malignancy. A 1 year screening mammogram is recommended. Based on the Tyrer Cuzick model (a risk assessment model) the patients lifetime risk is 8.1% and her 10 year risk is 3.7%. According to the ACR, ACS, and NCCN guidelines, an annual breast MRI exam jhonatan g with mammogram is recommended if the patients lifetime risk is 20% or greater. This exam was interpreted at Station ID: [id number]. NOTE: For mammograms, a report in lay terms will be sent to the patient. Approximately 15% of breast malignancies will not be visualized mammographically. In the management of a palpable breast mass, a negative mammogram must not discourage biopsy of a clinically suspicious lesion. Electronically Signed By: Duglas Godinez M.D. acr/penrad:09/23/2022 11:02:25 ACR BI-RADS Category 2: Benign Finding(s) 3342F PARENCHYMAL PATTERN: (A) - The breast(s) demonstrate(s) scattered fibroglandular densities. BI-RADS CATEGORY: (2) - 2 RECOMMENDATION: (ANNUAL) - Recommend routine annual screening mammography. [id number] 1 year screening LATERALITY: (B)
== END 2022-09-23 10:22 | disposition home or self-care (01) ==
LOC: DI 10:21
PROVIDERS: ATTEND Physician Assistant
DX: Z12.31 Encounter for screening mammogram for malignant neoplasm of breast (principal)

== ENCOUNTER 2022-11-25 12:48 | Outpatient (CLI) | payer OTHER ==
[2022-11-25 13:14] LABS: CREATININE 0.5 mg/dL (0.4-1.0); POTASSIUM 3.9 mmol/L (3.5-5.0)
[2022-11-25 13:41] LABS: ESTIMATED AVERAGE GLUCOSE 148 mg/dL (70-100); HEMOGLOBIN A1c% 6.8 % (4.27-6.07)
== END 2022-11-25 12:49 | disposition home or self-care (01) ==
LOC: LAB 12:48
PROVIDERS: ATTEND Physician Assistant
DX: E10.9 Type 1 diabetes mellitus without complications (principal)
CPT/HCPCS: 36415; 80048; 83036

== ENCOUNTER 2022-12-06 14:54 | Outpatient (CLI) | payer OTHER ==
[2022-12-06 15:06] LABS: BASOPHILS # (AUTO) 0.1 10^3/uL (0.0-0.1); BASOPHILS % (AUTO) 0.4 %; EOSINOPHILS # (AUTO) 0.1 10^3/uL (0.0-0.7); EOSINOPHILS % (AUTO) 0.9 %; HCT - HEMATOCRIT 40.8 % (37.0-47.0); HGB - HEMOGLOBIN 13.2 g/dL (12.0-16.0); LYMPHOCYTES # (AUTO) 2.6 10^3/uL (1.5-3.5); LYMPHOCYTES % (AUTO) 18.4 %; MEAN CORPUSCULAR HEMOGLOBIN 27.7 pg (27.0-31.0); MEAN CORPUSCULAR HGB CONC 32.4 g/dL (32.0-36.0); MEAN CORPUSCULAR VOLUME 85.5 fL (81.0-99.0); MEAN PLATELET VOLUME 10.6 fL (7.9-10.8); MONOCYTES # (AUTO) 0.8 10^3/uL (0.0-1.0); MONOCYTES % (AUTO) 5.3 %; NEUTROPHILS # (AUTO) 10.7 10^3/uL (1.5-6.6); NEUTROPHILS % (AUTO) 74.7 %; PLT - PLATELET COUNT 263 10^3/uL (130-450); RED BLOOD COUNT 4.77 10^6/uL (4.20-5.40); RED CELL DISTRIBUTION WIDTH 14.2 % (12.0-15.0); WHITE BLOOD COUNT 14.4 x10^3/uL (4.8-10.8)
[2022-12-06 15:51] LABS: THYROID STIMULATING HORMONE 0.71 uIU/mL (0.34-5.60)
[2022-12-06 15:53] LABS: FREE T4 (FREE THYROXINE) 1.09 ng/dL (0.58-1.64)
[2022-12-06 16:19] LABS: ALBUMIN 3.9 g/dL (3.2-5.5); ALBUMIN/GLOBULIN RATIO 1.4 (1.0-2.2); CALCIUM 8.8 mg/dL (8.5-10.3); CREATININE 0.6 mg/dL (0.4-1.0); TOTAL PROTEIN 6.6 g/dL (6.7-8.2)
== END 2022-12-06 14:55 | disposition home or self-care (01) ==
LOC: LAB 14:54
PROVIDERS: ATTEND Physician Assistant
DX: E03.9 Hypothyroidism, unspecified (principal); E10.9 Type 1 diabetes mellitus without complications; R53.83 Other fatigue
CPT/HCPCS: 36415; 80053; 82728; 83540; 84439; 84443; 84466; 85025

== ENCOUNTER 2023-01-09 15:01 | Outpatient (CLI) | payer OTHER ==
[2023-01-09 15:11] LABS: BASOPHILS # (AUTO) 0.1 10^3/uL (0.0-0.1); BASOPHILS % (AUTO) 0.7 %; EOSINOPHILS # (AUTO) 0.2 10^3/uL (0.0-0.7); EOSINOPHILS % (AUTO) 2.1 %; HCT - HEMATOCRIT 41.7 % (37.0-47.0); HGB - HEMOGLOBIN 13.5 g/dL (12.0-16.0); LYMPHOCYTES # (AUTO) 3.6 10^3/uL (1.5-3.5); LYMPHOCYTES % (AUTO) 36.3 %; MEAN CORPUSCULAR HGB CONC 32.4 g/dL (32.0-36.0); MEAN CORPUSCULAR VOLUME 86.5 fL (81.0-99.0); MEAN PLATELET VOLUME 10.8 fL (7.9-10.8); MONOCYTES # (AUTO) 0.6 10^3/uL (0.0-1.0); MONOCYTES % (AUTO) 5.6 %; NEUTROPHILS # (AUTO) 5.5 10^3/uL (1.5-6.6); PLT - PLATELET COUNT 289 10^3/uL (130-450); RED BLOOD COUNT 4.82 10^6/uL (4.20-5.40); RED CELL DISTRIBUTION WIDTH 14.2 % (12.0-15.0)
== END 2023-01-09 15:02 | disposition home or self-care (01) ==
LOC: LAB 15:01
PROVIDERS: ATTEND Physician Assistant
DX: D72.829 Elevated white blood cell count, unspecified (principal)
CPT/HCPCS: 36415; 85025

== ENCOUNTER 2023-10-08 07:23 | Outpatient (CLI) | payer OTHER ==
[2023-10-08 07:35] LABS: BASOPHILS # (AUTO) 0.1 10^3/uL (0.0-0.1); BASOPHILS % (AUTO) 0.6 %; EOSINOPHILS # (AUTO) 0.2 10^3/uL (0.0-0.7); HCT - HEMATOCRIT 45.7 % (37.0-47.0); HGB - HEMOGLOBIN 14.7 g/dL (12.0-16.0); LYMPHOCYTES # (AUTO) 2.7 10^3/uL (1.5-3.5); LYMPHOCYTES % (AUTO) 27.8 %; MEAN CORPUSCULAR HEMOGLOBIN 28.6 pg (27.0-31.0); MEAN CORPUSCULAR HGB CONC 32.2 g/dL (32.0-36.0); MEAN CORPUSCULAR VOLUME 88.9 fL (81.0-99.0); MEAN PLATELET VOLUME 9.9 fL (7.9-10.8); MONOCYTES # (AUTO) 0.6 10^3/uL (0.0-1.0); MONOCYTES % (AUTO) 5.8 %; NEUTROPHILS # (AUTO) 6.1 10^3/uL (1.5-6.6); NEUTROPHILS % (AUTO) 63.6 %; PLT - PLATELET COUNT 311 10^3/uL (130-450); RED BLOOD COUNT 5.14 10^6/uL (4.20-5.40); RED CELL DISTRIBUTION WIDTH 14.1 % (12.0-15.0); WHITE BLOOD COUNT 9.7 x10^3/uL (4.8-10.8)
[2023-10-08 07:55] LABS: ALBUMIN 4.3 g/dL (3.2-5.5); ALKALINE PHOSPHATASE 59 IU/L (42-121); ALT ALANINE AMINOTRANSFERASE 23 IU/L (10-60); AST ASPARTATE AMINOTRANSFERASE 27 IU/L (10-42); BUN - BLOOD UREA NITROGEN 20 mg/dL (6-20); CALCIUM 9.2 mg/dL (8.5-10.3); CARBON DIOXIDE - CO2 31 mmol/L (21-32); CHLORIDE 105 mmol/L (101-111); CHOL/HDL RATIO 2.4 (<4.4); CHOLESTEROL 141 mg/dL; CREATININE 0.6 mg/dL (0.6-1.3); GFR - MDRD 100 (>89); GLUCOSE 101 mg/dL (74-104); HDL CHOLESTEROL 59 mg/dL; LDL CHOLESTEROL,CALCULATED 66 mg/dL; LDL/HDL RATIO 1.1 (<4.4); POTASSIUM 4.1 mmol/L (3.5-4.5); SODIUM 140 mmol/L (135-145); TOTAL PROTEIN 6.5 g/dL (6.4-8.9); TRIGLYCERIDES 82 mg/dL (48-352); VLDL CHOLESTEROL 16 mg/dL
[2023-10-08 08:03] LABS: CREATININE,URINE 138.8 mg/dL; MICROALBUM/CREATININE RATIO,UR 12.2 ug/mg (<30.0); MICROALBUMIN,URINE 1.7 mg/dL
[2023-10-08 08:10] LABS: THYROID STIMULATING HORMONE 0.53 uIU/mL (0.34-5.60)
[2023-10-08 11:32] LABS: ESTIMATED AVERAGE GLUCOSE 154 mg/dL (70-100)
== END 2023-10-08 07:24 | disposition home or self-care (01) ==
LOC: LAB 07:23
PROVIDERS: ATTEND Physician Assistant
DX: E13.9 Other specified diabetes mellitus without complications (principal); Z13.220 Encounter for screening for lipoid disorders; E03.9 Hypothyroidism, unspecified
CPT/HCPCS: 36415; 80053; 80061; 82043; 82570; 83036; 83721; 84439; 84443; 85025

== ENCOUNTER 2023-12-04 08:10 | Outpatient (CLI) | payer OTHER ==
--- NOTE | 2023-12-04 20:31 | DEXA Report ---
PROCEDURE: Dexa Spine and/or Hip INDICATIONS: POST MENOPAUSAL TECHNIQUE: Dual energy x-ray absorptiometry (DXA) was performed on a [employer]. Regions measur ed are the AP Spine, femoral neck, and if needed forearm. COMPARISON: None FINDINGS: Lumbar Spine: Bone Mineral Density: 1.318 g/cm/cm,T score: 1.2. Left Femoral Neck: Bone Mineral Density: 0.911 g/cm/cm, T score: -0.9. Left Hip: Bone Mineral Density: 0.913 g/cm/cm,T score: -0.8. (T score greater or equal to -1.0: NORMAL) (T score from -1.1 to -2.4: OSTEOPENIA) (T score less than or equal to -2.5 to: OSTEOPOROSIS) Impression: By WHO criteria, this patient has normal bone density. Patients with diagnosis of osteoporosis or osteopenia should have regular bone mineral density assess ment. For those eligible for Medicare, routine testing is allowed once every 2 years. Testing frequ ency can be increased for patients who have rapidly progressing disease or for those who are receivin g medical therapy to restore bone mass. Reviewed by: Aleena Mahajan MD on 12/04/2023 8:30 PM PDT Approved by: Aleena Mahajan MD on 12/04/2023 8:30 PM PDT Station ID: [id number]
== END 2023-12-04 08:11 | disposition home or self-care (01) ==
LOC: DI 08:10
PROVIDERS: ATTEND Physician Assistant
DX: Z78.0 Asymptomatic menopausal state (principal)

== ENCOUNTER 2024-03-15 14:56 | Outpatient (CLI) | payer OTHER ==
[2024-03-15 15:21] LABS: ESTIMATED AVERAGE GLUCOSE 146 mg/dL (70-100); HEMOGLOBIN A1c% 6.7 % (4.27-6.07)
[2024-03-15 15:26] LABS: CALCIUM 9.2 mg/dL (8.5-10.3); CREATININE 0.6 mg/dL (0.6-1.3); POTASSIUM 4.7 mmol/L (3.5-4.5)
== END 2024-03-15 14:57 | disposition home or self-care (01) ==
LOC: LAB 14:56
PROVIDERS: ATTEND Physician Assistant
DX: E13.9 Other specified diabetes mellitus without complications (principal)
CPT/HCPCS: 36415; 80048; 83036

== ENCOUNTER 2024-03-26 07:12 | Outpatient (CLI) | payer OTHER ==
[2024-03-26 08:23] LABS: ALBUMIN 4.2 g/dL (3.2-5.5); BILIRUBIN,TOTAL 1.1 mg/dL (0.2-1.0); CALCIUM 9.7 mg/dL (8.5-10.3); CREATININE 0.5 mg/dL (0.6-1.3); POTASSIUM 4.2 mmol/L (3.5-4.5); TOTAL PROTEIN 6.3 g/dL (6.4-8.9)
--- NOTE | 2024-03-26 16:50 | Ultrasound Report ---
PROCEDURE: Abdomen Limited INDICATIONS: EPIGASTRIC ABD PAIN TECHNIQUE: Real-time focused scanning was performed of the abdomen, with image documentation. COMPARISONS: None. FINDINGS: Liver: Liver is normal in size and homogeneous in echotexture. Echogenicity similar to adjacent kid noble. Gallbladder: Gallbladder sludge noted. Note is made of an echogenic focus in the gallbladder measurin g 7 mm. No gallstones, wall thickening or pericholecystic edema. Gallbladder appears slightly distend ed. Biliary ducts: Intrahepatic bile ducts are non-dilated. Extrahepatic bile duct caliber measures 4 m m. Normal is 6-7 mm or less in diameter, or 10 mm or less post-cholecystectomy. Pancreas: Visualized portions of the pancreas are sonographically normal. Right kidney: Anechoic focus in the upper pole right kidney measures 3.4 cm. It contains no internal echogenicity, thin romero, likely simple cyst. Normal in size and echotexture. Right kidney measures 9.9 cm long. No hydronephrosis or nephrolithiasis. No solid masses. No complex renal cystic lesions which require follow-up. IVC: Intrahepatic inferior vena cava is patent. Miscellaneous: No free abdominal fluid. IMPRESSION: Mildly distended gallbladder with sludge. Questionable 7 mm gallbladder polyp versus mass. Indicated, CT abdomen with IV contrast may further evaluate. Recommend follow-up. Reviewed by: Archie Maier MD on 03/26/2024 4:49 PM PDT Approved by: Archie Maier MD on 03/26/2024 4:49 PM PDT Station ID: [id number]
== END 2024-03-26 07:13 | disposition home or self-care (01) ==
LOC: DI 07:12
PROVIDERS: ATTEND Physician Assistant
DX: R10.13 Epigastric pain (principal); R10.11 Right upper quadrant pain; R93.3 Abnormal findings on diagnostic imaging of other parts of digestive tract
CPT/HCPCS: 36415; 80053; 83690

== ENCOUNTER 2024-04-09 11:49 | Outpatient (CLI) | payer OTHER ==
[2024-04-09] MEDS ORDERED: DIATRIZOATE MEGLU/DIATRIZO SOD 30 ML BOTTLE PO ONE (12:18)
[2024-04-09] MEDS ORDERED: iohexoL-300 100 ML VIAL ONE ×2 (12:18→13:23)
[2024-04-09] MEDS: iohexoL-300 100 ML VIAL IVP ONE (18:05)
[2024-04-09] MEDS: DIATRIZOATE MEGLU/DIATRIZO SOD 30 ML BOTTLE PO ONE (18:05)
--- NOTE | 2024-04-12 11:30 | CT Report ---
PROCEDURE: Abdomen W INDICATIONS: EPIGASTRIC ABDOMINAL PAIN, GALLBLADDER MASS CONTRAST: 100ml omni 300 TECHNIQUE: CT scan of the abdomen was performed. Intravenous contrast media was administered. Images recorded an d evaluated at appropriate window settings. Reformats: coronal and sagittal. For radiation dose reduc tion, the following was used: automated exposure control, adjustment of mA and/or kV according to pat ient size. COMPARISON: Abdominal ultrasound 03/26/2024. CT abdomen and pelvis 09/06/2021. FINDINGS: Image quality: Diagnostic. Lower chest: Unremarkable. Liver: No solid mass. Gallbladder: Within normal limits in size. Gallbladder fold at the fundus. No conspicuous mass. No ca lcified gallstones. Biliary tree: No intrahepatic or extrahepatic dilation, accounting for age. Spleen: No splenomegaly. Pancreas: No pancreatic ductal dilation. Atrophic. No peripancreatic fluid collection. Adrenals: No adrenal nodule. Kidneys and ureters: No hydronephrosis. Small nonobstructing kidney stones bilaterally. No renal cyst ic lesion which requires follow up. No solid mass. Stomach, bowel and peritoneum: No gastric or small bowel dilation. No abnormal wall thickening. No pa thologic free fluid. The appendix is not dilated. Lymph nodes: No central or retroperitoneal adenopathy. Vessels: No infrarenal aortic aneurysm. Patent portal vein. Bones: No aggressive osseous abnormality. Multilevel disc space height loss. T12 compression fracture , unchanged. Other: No significant ventral hernia. IMPRESSION: 1. No conspicuous gallbladder mass. Suspected gallbladder polyp seen on prior ultrasound. -Recommend follow-up gallbladder ultrasound in one year. 2. No adenopathy. No free fluid. 3. Small nonobstructing kidney stones. 4. Atrophic pancreas. 5. Stable T12 compression fracture. Reviewed by: Pascual Fournier MD on 04/12/2024 11:28 AM PDT Approved by: Pascual Fournier MD on 04/12/2024 11:28 AM PDT Station ID: [id number]
== END 2024-04-09 11:50 | disposition home or self-care (01) ==
LOC: DI 11:49
PROVIDERS: ATTEND Physician Assistant
DX: R10.13 Epigastric pain (principal); K82.9 Disease of gallbladder, unspecified
CPT/HCPCS: 74160; Q9963; Q9967